=== PATIENT | male | born 1960 | race Caucasian/White ===

== ENCOUNTER → 2024-09-24 | Outpatient (CLI) | payer MEDICARE, MEDICAID, SELFPAY ==
--- NOTE | 2024-09-24 13:30 | XR_ITS ---
Examination: Ultrasound abdominal aorta TECHNIQUE: Multiple high resolution grayscale sonographic images abdominal aorta Exam date and time: September 24, 2024 1337 hours INDICATIONS: CT angiogram abdomen May 31, 2024 infrarenal abdominal aortic aneurysm AP dimension 4.1 cm medial lateral dimension 4.0 cm cephalad caudad dimension 8.6 cm FINDINGS: Transverse dimension proximal aorta 2.9 x 2.5 cm, mid aorta 4.1 x 3.5 cm distal aorta 3.7 x 3.3 cm right iliac artery 1.4 x 1.2 cm left iliac artery 1.4 x 1.3 cm, length of the abdominal aortic aneurysm 8.1 cm IMPRESSION: Aneurysmal dilatation abdominal aorta as above
== END | disposition home or self-care (01) ==
PROVIDERS: PCP Family Medicine; Referring Provider Surgery Vascular Surgery; Visit Provider Surgery Vascular Surgery
DX: I71.40 Abdominal aortic aneurysm, without rupture, unspecified (principal)
CPT/HCPCS: 76770

== ENCOUNTER → 2024-10-03 | Outpatient (CLI) | payer MEDICARE, MEDICAID, SELFPAY ==
[2024-10-03 16:15] LABS: Basophils # (Auto) 0.1 Thou/mm3 (0.0-0.2); Basophils % (Auto) 1 % (0-2.5); Eosinophils # (Auto) 0.2 Thou/mm3 (0.0-0.5); Eosinophils % (Auto) 2 % (0-10); Hematocrit 49.8 % (41.0-53.0); Hemoglobin 17.7 g/dL (13.5-16.0); Immature Granulocytes % (Auto) 0 % (0-0); Immature Granulocytes Auto 0.04 Thou/mm3 (0.00-0.00); Lymphocytes # (Auto) 3.9 Thou/mm3 (1.0-4.8); Lymphocytes % (Auto) 40 % (10-50); Mean Corpuscular HGB Conc 35.5 g/dl (31.0-37.0); Mean Corpuscular Hemoglobin 29.5 pg (25.0-35.0); Mean Corpuscular Volume 83 fL (80-100); Monocytes # (Auto) 0.8 Thou/mm3 (0.0-0.8); Monocytes % (Auto) 8 % (0-12); Neutrophils # (Auto) 4.9 Thou/mm3 (1.8-7.7); Neutrophils % (Auto) 49 % (37-80); Nucleated Red Blood Cell % 0 /100 WBC (0); Platelet Count 257 Thou/mm3 (140-440); RDW Standard Deviation 38.5 fL (35.1-43.9); White Blood Count 9.9 Thou/mm3 (3.8-10.6)
[2024-10-03 16:56] LABS: Glucose Estimated Average 258 mg/dL (80-131); Hemoglobin A1C 10.6 % Hgb (4.8-6.0)
[2024-10-03 17:29] LABS: Anion Gap 6 (7-16); BUN/Creatinine Ratio 26 Ratio (12-20); Blood Urea Nitrogen 26 mg/dL (9-23); Carbon Dioxide 25.9 mMol/L (20.0-31.0); Cardiac Risk Estimate 6.9 RATIO (4.0-6.7); Chloride 101 mMol/L (98-107); Cholesterol 228 mg/dL (132-200); Glucose 256 mg/dL (74-106); HDL Cholesterol 33 mg/dL (40-60); Magnesium 1.9 mg/dL (1.6-2.6); Osmolality,Calculated 280 (275-295); Potassium 4.2 mMol/L (3.4-5.1); Sodium 133 mMol/L (136-145); Thyroid Stimulating Hormone 1.95 uIU/mL (0.55-4.78); Triglycerides 769 mg/dL (30-150); eGFR > 60 See Note
== END | disposition home or self-care (01) ==
PROVIDERS: PCP Family Medicine; Referring Provider Internal Medicine Cardiovascular Disease; Visit Provider Internal Medicine Cardiovascular Disease
DX: I71.20 Thoracic aortic aneurysm, without rupture, unspecified (principal); I35.1 Nonrheumatic aortic (valve) insufficiency; E11.9 Type 2 diabetes mellitus without complications
CPT/HCPCS: 36415; 80048; 80061; 83036; 83735; 84439; 84443; 85025

== ENCOUNTER 2024-10-10 09:41 | Outpatient (CLI) | payer MEDICARE, MEDICAID, SELFPAY ==
[2024-10-10] VITALS (16 sets, daily range): BP systolic 112–161; BP diastolic 74–92; PULSE 72–79; RESP 12–20; TEMP 36.5–36.6; O2SAT 90–95; BMI 34.3
[2024-10-10 10:47] LABS: Basophils # (Auto) 0.1 Thou/mm3 (0.0-0.2); Basophils % (Auto) 1 % (0-2.5); Eosinophils # (Auto) 0.2 Thou/mm3 (0.0-0.5); Eosinophils % (Auto) 2 % (0-10); Hematocrit 48.7 % (41.0-53.0); Hemoglobin 17.1 g/dL (13.5-16.0); Immature Granulocytes % (Auto) 1 % (0-0); Immature Granulocytes Auto 0.05 Thou/mm3 (0.00-0.00); Lymphocytes # (Auto) 3.1 Thou/mm3 (1.0-4.8); Lymphocytes % (Auto) 33 % (10-50); Mean Corpuscular HGB Conc 35.1 g/dl (31.0-37.0); Mean Corpuscular Hemoglobin 29.4 pg (25.0-35.0); Mean Corpuscular Volume 84 fL (80-100); Monocytes # (Auto) 0.7 Thou/mm3 (0.0-0.8); Monocytes % (Auto) 8 % (0-12); Neutrophils # (Auto) 5.2 Thou/mm3 (1.8-7.7); Neutrophils % (Auto) 56 % (37-80); Nucleated Red Blood Cell % 0 /100 WBC (0); Platelet Count 262 Thou/mm3 (140-440); RDW Standard Deviation 38.7 fL (35.1-43.9); Red Blood Count 5.82 Miln/mm3 (4.50-5.90); White Blood Count 9.3 Thou/mm3 (3.8-10.6)
[2024-10-10 11:03] LABS: Anion Gap 8 (7-16); BUN/Creatinine Ratio 14 Ratio (12-20); Blood Urea Nitrogen 15 mg/dL (9-23); Calcium 9.9 mg/dL (8.3-10.6); Carbon Dioxide 25.8 mMol/L (20.0-31.0); Chloride 98 mMol/L (98-107); Creatinine (Component) 1.1 mg/dL (0.6-1.3); Glucose 346 mg/dL (74-106); Magnesium 1.8 mg/dL (1.6-2.6); Osmolality,Calculated 279 (275-295); Potassium 4.7 mMol/L (3.4-5.1); Sodium 132 mMol/L (136-145); eGFR > 60 See Note
[2024-10-10 11:04] LABS: Partial Thromboplastin Time 27.8 Seconds (22.0-36.0); Prothrombin Time 11.3 Seconds (9.0-12.2)
--- NOTE | 2024-10-10 13:00 | ECHO_ITS ---
Transesophageal Echo Report Ht (in): 72 Wt (lb): 255 Exam Location: [facility]ondest[facility] Tester Status: Outpatient Egg Buyer: Iman Payne Indications: Procedure Performed: BP: 138 / 92 HR: 76 Contrast: Agitated Saline Rhythm: Sinus Technical Quality: Fair Total Dose(mL): MEASUREMENTS 2D ECHO Aortic Root Diameter 4.9 cm Ascending Aorta Diameter 5.0 cm (Male / Female) Normal Values Medications The patient is medicated with 4mg of intravenous Versed and 75mcg of intravenous Fentanyl. Complications There are no complications prior to, during or in recovery from the transesophageal echocardiogram. FINDINGS Left Ventricle Normal left ventricular size, wall thickness, systolic function with no obvious regional wall motion abnormalities. The ejection fraction is visually estimated at 55-60%. Right Ventricle The right ventricle is normal in size and systolic function. Left Atrium The left atrium is normal. Right Atrium The right atrium is normal. Atrial Appendages The left atrial appendage appears normal with no evidence for thrombus. Atrial Septum An intravenous agitated saline injection indicated a PFO across the atrial septum release by agita tion saline injection. Aorta The aortic root and ascending aorta is severely dilated. 5.0cm Mitral Valve The mitral valve is normal. There is mild mitral valve regurgitation. Aortic Valve The aortic valve is trileaflet and normal. There is moderate to severe aortic valve regurgitation. Tricuspid Valve The tricuspid valve is normal. There is mild tricuspid valve regurgitation. Pulmonic Valve The pulmonic valve is normal.There is trace pulmonic valve regurgitation. Vessels The pulmonary artery appears normal. The inferior vena cava pulmonary and hepatic veins appear ponce l. Pericardium The pericardium is normal. There is no significant pericardial effusion. CONCLUSIONS Indication: Aortic aneurysm The aortic root and ascending aorta is severely dilated. Ascending aorta at 5.0cm. Moderate to severe AI. central AI. Vena contracte width of 0.98 cm. An intravenous agitated saline injection indicated a small PFO across the atrial septum release by agitation saline injection. No evidence of LA/RAYSHAWN thrombus Normal LV size and function. Estimated EF 55-60% Normal RV size and function. Mild, TR, MR. Trace PI. Jeyson Santiago (Electronically Signed) Final Date: 10 October 2024 19:18
[2024-10-10] MEDS: SODIUM CHLORIDE 0.9% 1000 ML 500 ML 100 ML IV (13:30)
[2024-10-10] MEDS: BENZOCAINE 20% (Hurricaine) SPRAY 1 DOSE TOP (13:31)
[2024-10-10] MEDS: MIDAZOLAM INJ 1 MG/ML VIAL 2 ML 4 MG IV (13:33)
[2024-10-10] MEDS: fentaNYL CIT INJ 50 mCg/ML AMP 2ML 75 MCG IV (13:34)
--- NOTE | 2024-10-10 16:01 | PC.NURSE ---
1450 patient is awake, alert, breathing unlabored, s/t MAIKEL under IV sedation, report received from Gladys LOYA, will get patient ready to go home. 1525 patient is awake, alert, breathing unlabored, able to tolerate sandwich and soda with no difficulty swallowing, meets discharge criteria, discharge instructions given, patient discharged home in wheelchair with all belongings.
== END 2024-10-10 15:25 | disposition home or self-care (01) ==
PROVIDERS: PCP Family Medicine; Referring Provider Internal Medicine Cardiovascular Disease; Visit Provider Internal Medicine Cardiovascular Disease
PROC: (CPT 93312; principal; 2024-10-10 13:00)
DX: I08.1 Rheumatic disorders of both mitral and tricuspid valves (principal); Z01.812 Encounter for preprocedural laboratory examination
CPT/HCPCS: 36415; 80048; 83735; 85025; 85610; 85730; 93312; 99152; 99153; J2250; J3010; J7030; A9270

== ENCOUNTER 2024-11-29 10:12 | Day surgery (SDC) | payer MEDICARE, MEDICAID, SELFPAY ==
--- NOTE | 2024-11-28 07:00 | EKG_ITS ---
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
[2024-11-28 10:33] VITALS: BMI 33.9
[2024-11-28 13:19] LABS: Basophils # (Auto) 0.1 Thou/mm3 (0.0-0.2); Basophils % (Auto) 1 % (0-2.5); Eosinophils # (Auto) 0.2 Thou/mm3 (0.0-0.5); Eosinophils % (Auto) 2 % (0-10); Hematocrit 46.8 % (41.0-53.0); Hemoglobin 16.5 g/dL (13.5-16.0); Immature Granulocytes % (Auto) 0 % (0-0); Immature Granulocytes Auto 0.04 Thou/mm3 (0.00-0.00); Lymphocytes # (Auto) 3.5 Thou/mm3 (1.0-4.8); Lymphocytes % (Auto) 34 % (10-50); Mean Corpuscular HGB Conc 35.3 g/dl (31.0-37.0); Mean Corpuscular Hemoglobin 29.5 pg (25.0-35.0); Mean Corpuscular Volume 84 fL (80-100); Monocytes # (Auto) 0.9 Thou/mm3 (0.0-0.8); Monocytes % (Auto) 9 % (0-12); Neutrophils # (Auto) 5.6 Thou/mm3 (1.8-7.7); Neutrophils % (Auto) 54 % (37-80); Nucleated Red Blood Cell % 0 /100 WBC (0); Platelet Count 281 Thou/mm3 (140-440); RDW Standard Deviation 39.3 fL (35.1-43.9); Red Blood Count 5.59 Miln/mm3 (4.50-5.90); White Blood Count 10.3 Thou/mm3 (3.8-10.6)
[2024-11-28 13:27] LABS: INR 1.1 (0.9-1.3); Partial Thromboplastin Time 29.4 Seconds (22.0-36.0); Prothrombin Time 11.7 Seconds (9.0-12.2)
[2024-11-28 13:28] LABS: Anion Gap 9 (7-16); BUN/Creatinine Ratio 18 Ratio (12-20); Blood Urea Nitrogen 18 mg/dL (9-23); Calcium 9.6 mg/dL (8.3-10.6); Carbon Dioxide 26.2 mMol/L (20.0-31.0); Chloride 103 mMol/L (98-107); Estimated Creatinine Clearance 99.6 mL/min (>60); Glucose 166 mg/dL (74-106); Osmolality,Calculated 281 (275-295); Potassium 4.2 mMol/L (3.4-5.1); Sodium 138 mMol/L (136-145); eGFR > 60 See Note
[2024-11-29] VITALS (11 sets, daily range): BP systolic 106–144; BP diastolic 66–91; PULSE 62–87; RESP 8–19; TEMP 36.2–36.3; O2SAT 92–98
--- NOTE | 2024-11-29 14:00 | ESOP_ITS ---
Cardiac Cath Procedure Procedure Name Date of procedure: 11/29/2024 BANQUET CHEF: Jeyson Santiago MD PROCEDURE PERFORMED: 1. Left and right heart cardiac catheterization including right, left coronary angiograms and left ventriculogram 2. Ultrasound-guided access of the right radial artery and right femoral vein. 3. Conscious sedation for 30 minutes. Procedure Narrative HISTORY AND INDICATIONS: A 64 year old male patient with past medical history of thoracic and abdominal aortic aneurysm, DM2, HTN, HLD, COPD, covid PNA, pneumothorax 2021, GERD, history of smoking (quit 2009 - 2.5 packs/day), morbid obesity and drinking (socially) was brought in for an elective left and right heart cardiac catheterization as the patient had ascending aortic abdominal aneurysm along with moderate to severe AI in preparation for possible aortic valve surgery along with aortic root replacement possibly. Patient was explained the risk benefits and alternatives of performing a left heart cardiac catheterization including the risk of bleeding, heart attack, stroke and in detail and the agreeable for the procedure. Consent signed, placed in the chart and H&P updated. DESCRIPTION OF PROCEDURE: The patient was brought to the cardiac catheterization lab and all asceptic precautions were followed. Patient was given 1 Mg of Versed and 50 mcg of fentanyl for moderate conscious sedation. 2 mL of lidocaine was given in the right wrist. The right radial artery was accessed via the ultrasound guidance as well as micropuncture technique. A 6 [place] glide sheath was introduced. A 10 ml of lidocaine was then injected in the right femoral area and right femoral vein vein was accessed with ultrasound guidance and micropuncture technique. A 7 maldivian femoral sheath was used. A 7 [place] catheter was used with a [place] wire to direct into the right atrium with inflated balloon. Serial measurements of right atrium, right ventricle, pulmonary artery and pulmonary capillary wedge were taken severely with normal respiration as well as at end expiration as noted below. We then used a 6 [place] TIG 4 catheter to perform the left and right coronary angiogram as well as a left ventriculogram which showed the following findings. [facility] findings: 1. Left ventricular ejection fraction normal at 55 to 60% without any regional wall motion abnormalities. LVEDP was mildly elevated at 90 mmHg. There was no significant transvalvular aortic gradient. 2. Right dominant circulation left main artery is a large-caliber vessel without any significant stenosis. 3. LAD is a large sized artery with moderate 50% stenosis in the mid LAD-2 tandem lesions, a medium size diagonal 1 and small diagonal 2 with mild disease. 4. LCx is a medium to large size artery with moderate 50% stenosis in the mid LCx with a small OM1 and a medium sized OM 2 or LPL 5. RCA is a large artery with severe 90% stenosis in the mid RCA, otherwise diffuse disease and medium RPDA and a small RPL with mild disease RHC findings: Mean right atrial pressure was 5 mmHg. Right atrial pressure was 17/5 mmHg. Pulmonary artery pressure was 29/2 mmHg with a mean of 15 mmHg Mean pulmonary capillary wedge pressure was 14 mmHg. TPG was 1 mmHg Pulmonary artery PA saturation was 62.7 %.? Arterial saturation was 91.6 % on room air. Cardiac output was 4.5 L/min and cardiac index was normal at 1.9 L/min/m? A radial band was used to achieve the hemostasis of the right radial artery access and manual hemostasis for the right femoral vein. Patient will be monitored in the cardiac clinical program coordinator for the next 2 to 3 hours and will be sent to the telemetry floor. Patient recommended to follow-up with me in the office within 7 days after discharge. Complications: None Specimens: None Blood loss: Estimated 5 -10 ml Summary/findings: 1. Ascending aortic aneurysm at 5.1 cm along with moderate to severe AI: Elective LHC showed patient had severe 90% stenosis of the mid RCA and moderate CAD of the LAD and LCx with around 50 to 60% stenosis in the mid segments. Rest of the arteries showed only mild disease. 2. LVEF was normal at 55-60 % with mildly elevated LVEDP at 19 mmHg and no significant transvalvular aortic gradient 3. Right heart cardiac catheterization showed normal right heart pressures with normal PCWP at 40 mmHg and normal mean PA 50 mmHg and mean RA was only 5 mmHg. 4. Low normal cardiac output and cardiac index at 4.5 L/min and 1.9 L/min/m?. Recommendations: 1. Given patient's severe single coronary artery disease involving the mid RCA and the ascending aortic aneurysm at 5.1 cm along with moderate to severe AI decision was made to send the patient for CABG along with aortic valve replacement and root repair. Discussed with Dr. Loredo cardiothoracic surgeon at [facility] and he will see the patient in his office next week and will plan for the surgery after all appropriate preoperative workup. 2. Recommend aggressive risk factor modification along with aggressive medical treatment and to keep the blood pressure below 120/80 mmHg at all the times. 3. Recommended no lifting more than 5 pounds for next 7-10 days and follow up in my office in 7 days. Jeyson Santiago MD Interventional Cardiology.
[2024-11-29] MEDS: SODIUM CHLORIDE 0.9% 500 ML 500 ML 200 ML IV (14:04)
[2024-11-29 15:46] LABS: O2 Saturation (Cath Lab) 93 % (91-98); Puncture Site Aortic
[2024-11-29 15:49] LABS: O2 Saturation (Cath Lab) 62 % (91-98); Puncture Site Pulmonary Artery
--- NOTE | 2024-11-29 16:40 | PC.NURSE ---
Cardiac Cath disc sent with patient on discharge
== END 2024-11-29 16:38 | disposition home or self-care (01) ==
PROVIDERS: PCP Family Medicine; Referring Provider Internal Medicine Cardiovascular Disease; Visit Provider Internal Medicine Cardiovascular Disease
PROC: (CPT 93460; principal; 2024-11-29 12:00)
DX: I25.10 Atherosclerotic heart disease of native coronary artery without angina pectoris (principal); I35.1 Nonrheumatic aortic (valve) insufficiency; I71.43 Infrarenal abdominal aortic aneurysm, without rupture; I10 Essential (primary) hypertension; J44.9 Chronic obstructive pulmonary disease, unspecified; E11.9 Type 2 diabetes mellitus without complications; E78.5 Hyperlipidemia, unspecified; Z87.891 Personal history of nicotine dependence; F12.90 Cannabis use, unspecified, uncomplicated; Z86.79 Personal history of other diseases of the circulatory system; K21.9 Gastro-esophageal reflux disease without esophagitis; J44.0 Chronic obstructive pulmonary disease with (acute) lower respiratory infection; Z01.810 Encounter for preprocedural cardiovascular examination
CPT/HCPCS: 93460; 36415; 75625; 80048; 82810; 85025; 85610; 85730; 93005; 99152; A4649; C1887; C1894; J0171; J0461; J1265; J1643; J2250; J2310; J2371; J2405; J3010; J3490; J7040; Q9967; J2305

== ENCOUNTER 2025-01-09 13:03 | Emergency (ER) | payer MEDICARE, MEDICAID, SELFPAY ==
[2025-01-09] VITALS (7 sets, daily range): BP systolic 137–161; BP diastolic 64–91; PULSE 65–108; RESP 14–20; TEMP 36.3–37.1; O2SAT 92–95; BMI 32.0
--- NOTE | 2025-01-09 13:27 | XR_ITS ---
Examination: AP chest single view Technique one AP portable upright chest single view Exam date and time: January 09, 2025 1249 hours Comparison September 13, 2022 INDICATIONS: Chest pain today. FINDINGS: Bibasilar opacity consistent with pneumonia Normal heart size Moderate hyperexpansion IMPRESSION: Bibasilar pneumonia
--- NOTE | 2025-01-09 13:27 | EKG_ITS ---
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
--- NOTE | 2025-01-09 13:28 | XR_ITS ---
Examination: CTA chest, with intravenous contrast. CTA abdomen, with intravenous contrast. CTA pelvis, with intravenous contrast. 2-D sagittal and coronal reconstructions. 3-D reconstructions. Date and time of exam: January 09, 2025 1610 hours INDICATIONS: Right-sided chest pain shortness of breath today CTDI vol (mgy) 27.6 DLP (MGycm) 1471 Technique: Multiple CTA images, 2.0 mm slice thickness, obtained chest, abdomen, pelvis, with the high-resolution 64 slice scanner. 100 cc Isovue-370 is administered intravenously. Sagittal and coronal 2-D reconstructions are obtained. 3-D reconstructions, angiographic images are obtained. 3-D postprocessing, including vascular maximum intensity projections. Low dose protocols were performed. One or more of the following dose reduction techniques were used; automated exposure control, adjustment of the mA and/or KV according to patient size, use of iterative reconstruction technique. 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
--- NOTE | 2025-01-09 13:29 | PD.EDRME ---
Rapid Medical Screening Exam RME Arrival date/time: 01/09/25 13:03 Chief Complaint: Abdominal Pain Time Seen by Provider: 01/09/25 13:17 Vital signs: Vital Signs Temperature 97.8 F 01/09/25 13:19 Pulse Rate 108 H 01/09/25 13:19 Respiratory Rate 20 01/09/25 13:19 Blood Pressure 161/83 H 01/09/25 13:19 Pulse Oximetry (%) 95 01/09/25 13:19 Oxygen Delivery Method Room Air 01/09/25 13:19 RME Narrative: 64-year-old male patient with significant history of aortic aneurysm, hypertension, diabetes mellitus, came in for evaluation regarding worsening substernal chest pain since yesterday. Severity 10 out of [address] Davalos, regarding aortic aneurysm, and was advised to follow-up in 6 months.
[2025-01-09] MEDS: ONDANSETRON INJ 2 MG/ML INJ 2 ML 4 MG IV ×2 (13:47→15:15)
[2025-01-09] MEDS: MORPHINE SULF INJ 10 MG/ML VIAL 4 MG IVP (13:47)
--- NOTE | 2025-01-09 14:02 | PC.NURSE ---
PT CAME IN ROOM FROM LOBBY, PT HEAR FOR ABD PAIN 10/10 EPIGASTIC PAIN RADIATES TO BACK, PAIN STARTED YESTERDAY MORNING. PT STATES HE 2 Pneumothorax to left long, pt was suppose heart surgery but canceled do to pneumothorax needs valve replacement.
[2025-01-09 14:03] LABS: Basophils # (Auto) 0.1 Thou/mm3 (0.0-0.2); Basophils % (Auto) 0 % (0-2.5); Eosinophils # (Auto) 0.1 Thou/mm3 (0.0-0.5); Eosinophils % (Auto) 0 % (0-10); Hematocrit 50.5 % (41.0-53.0); Hemoglobin 18.2 g/dL (13.5-16.0); Immature Granulocytes % (Auto) 1 % (0-0); Immature Granulocytes Auto 0.12 Thou/mm3 (0.00-0.00); Lymphocytes # (Auto) 3.1 Thou/mm3 (1.0-4.8); Lymphocytes % (Auto) 16 % (10-50); Mean Corpuscular Hemoglobin 29.9 pg (25.0-35.0); Mean Corpuscular Volume 83 fL (80-100); Monocytes # (Auto) 1.2 Thou/mm3 (0.0-0.8); Monocytes % (Auto) 6 % (0-12); Neutrophils # (Auto) 14.6 Thou/mm3 (1.8-7.7); Neutrophils % (Auto) 76 % (37-80); Nucleated Red Blood Cell % 0 /100 WBC (0); Platelet Count 378 Thou/mm3 (140-440); RDW Standard Deviation 39.9 fL (35.1-43.9); Red Blood Count 6.08 Miln/mm3 (4.50-5.90); White Blood Count 19.1 Thou/mm3 (3.8-10.6)
[2025-01-09 14:16] LABS: INR 1.1 (0.9-1.3); Partial Thromboplastin Time 30.2 Seconds (22.0-36.0); Prothrombin Time 11.8 Seconds (9.0-12.2)
[2025-01-09 14:22] LABS: Alanine Aminotransferase 35 U/L (10-49); Albumin, Serum 5.4 gm/dL (3.4-4.8); Albumin/Globulin Ratio 1.7 (1.2-2.2); Alkaline Phosphatase 93 U/L (46-116); Anion Gap 14 (7-16); Aspartate Amino Transferase 21 U/L (0-34); BUN/Creatinine Ratio 18 Ratio (12-20); Bilirubin,Total 0.6 mg/dL (0.3-1.2); Blood Urea Nitrogen 16 mg/dL (9-23); Calcium 10.7 mg/dL (8.3-10.6); Calcium (Corrected) 10.7 mg/dL (8.5-10.1); Carbon Dioxide 19.5 mMol/L (20.0-31.0); Chloride 105 mMol/L (98-107); Creatinine (Component) 0.9 mg/dL (0.6-1.3); Estimated Creatinine Clearance 110.8 mL/min (>60); Globulin 3.1 gm/dL (2.3-3.5); Glucose 171 mg/dL (74-106); Lipase 52 U/L (12-53); Osmolality,Calculated 280 (275-295); Potassium 4.4 mMol/L (3.4-5.1); Sodium 138 mMol/L (136-145); Total Protein 8.5 gm/dL (5.7-8.2); Troponin I < 0.020 ng/mL (0.0-0.045); eGFR > 60 See Note
[2025-01-09 14:24] LABS: B-Type Natriuretic Peptide 23 pg/mL (0-100)
--- NOTE | 2025-01-09 15:03 | PD.EDABDPN ---
ED Abdominal Pain RME/HPI General Chief Complaint: Abdominal Pain Stated complaint: SHARP PAIN MID-UPPER ABD X 1 DAY Time seen by provider: 01/09/25 13:17 Arrival date/time: 01/09/25 13:03 Limitations: no limitations RME / HPI RME / HPI narrative: 64-year-old male patient with significant history of aortic aneurysm, hypertension, diabetes mellitus, came in for evaluation regarding worsening substernal chest pain since yesterday. Severity 10 out of [address] Davalos, regarding aortic aneurysm, and was advised to follow-up in [address] BURTON MAIN ED EVALUATION: 64 year old male with history of abdominal aortic aneurysm, hypertension, diabetes, hyperlipidemia, COPD presents to the ED for evaluation of abdominal pain beginning yesterday when he woke up. Described as aching in sensation that is located most to the mid epigastric region, rating as severe. States he has had problems with reflux and GERD in the past. Additionally reports in the past the pain comes on suddenly and resolved on its own. Denies chest pain, sob, palpitations, n/v/d, or urinary symptoms. Patient additionally mentioned he recently underwent preoperative labs and imaging. States they were concerned with his cxr findings and has a chest CT pending. 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 Past surgical hx: facial trauma and had reconstructive surgery years ago. Soc hx: smokes, no drinking Related Data Home Medications ?Medication ?Instructions ?Recorded ?Confirmed amlodipine 10 mg tablet 10 mg PO QDAY 10/10/24 01/09/25 aspirin 81 mg capsule 81 mg PO QDAY 10/10/24 01/09/25 fluticasone furoate 200 1 inh inhalation QDAY 10/10/24 01/09/25 mcg-vilanterol 25 mcg/dose inhalation powder lisinopril 20 1 tab PO QDAY 10/10/24 01/09/25 mg-hydrochlorothiazide 12.5 mg tablet metformin 500 mg tablet,extended 500 mg PO BID 10/10/24 01/09/25 release 24 hr Held on 11/29/24. Instructions: Resume on 12/01/24. albuterol sulfate 90 mcg/actuation 1 puff inhalation Q1H PRN 11/29/24 01/09/25 aerosol inhaler shortness of breath or wheezing empagliflozin 25 mg tablet 25 mg PO QDAY 11/29/24 01/09/25 (Jardiance) aspirin 81 mg tablet,delayed mg 01/09/25 release clopidogrel 75 mg tablet (Plavix) 75 mg PO QDAY 01/09/25 01/09/25 Allergies Allergy/AdvReac Type Severity Reaction Status Date / Time codeine Allergy Intermediate Hives Verified 01/09/25 14:59 Bee Stings Allergy Intermediate Rash Uncoded 01/09/25 14:59 Review of Systems Review of Systems Narrative Review of Systems: GEN: No fever, no chills, no weight loss EYES: No discharge, no visual changes, no pain HEENT: No ear pain, no congestion, no sore throat PULM: No shortness of breath, no cough, no congestion CV: No chest pain, no dyspnea on exertion, no palpitations GI: No nausea, no vomiting, no diarrhea, + pain, no constipation : No frequency, no urgency, no dysuria MUSC/SKEL: No joint pain, no back pain SKIN: No rash PSYCH: No hallucinations, no depression HEME/LYMPH: No easy bleeding or bruising tendencies NEURO: No weakness, no headache Past Medical History Past Medical History NEUROLOGIC: Positive Neurological Disorders (forgetful) CARDIAC: Positive Cardiac Disorders (leaky hear valve), Angina, Hypercholesterolemia and Hypertension RESPIRATORY: Positive Chronic Obstructive Pulmonary Disease (COPD) and Asthma (copd) GASTROINTESTINAL: Positive Gastrointestinal Disorders, Gastroesophageal Reflux Disease and Obesity ENT: Positive Cataracts ENDOCRINE: Positive Endocrine Disorders and Diabetes Mellitus Type 2 PSYCHO/SOCIAL: Positive Recreational Drug Use (MARIJUANA), Depression and Anxiety OTHER HISTORY: Positive Chicken Pox, Measles and Mumps Family History FAMILY HISTORY: Negative Family Respiratory Disorders or Family Cardiac Disorders Surgical History SURGICAL: Positive Eye Surgery (FACIAL RECONSTRUCTION) Social History SMOKING STATUS: Former smoker ED Exam General Limitations: Present no limitations General appearance: Present alert, in no apparent distress and obese Head Head exam: Present atraumatic, normocephalic and normal inspection Eye Eye exam: Present normal appearance, PERRL and EOMI ENT ENT exam: Present normal exam, normal oropharynx and mucous membranes moist Neck Neck exam: Present normal inspection, full ROM and trachea midline Chest Chest inspection: Present normal inspection and symmetric chest wall rise Respiratory Respiratory exam: Present normal lung sounds bilaterally Cardiovascular Cardiovascular exam: Present regular rate, normal rhythm and normal heart sounds Abdominal Exam Abdominal exam: Present soft, tenderness (1+ epigastric tenderness ) and normal bowel sounds Extremities Exam Extremities exam: Present normal inspection and full ROM Back Exam Back exam: Present normal inspection and full ROM Neurological Exam Neurological exam: Present alert, oriented X3 and CN II-XII intact Psychiatric Psychiatric exam: Present normal affect and normal mood Skin Skin exam: Present warm, dry, intact and normal color Course Quality Measures none Orders Category Date Time Status Information Technology Professor STAT Care 01/09/25 14:54 Completed Information Technology Professor X1 Care 01/09/25 14:07 Completed Continuous Pulse Oximetry STAT Care 01/09/25 14:54 Completed EKG (ED ONLY) *Do not use* NOW Care 01/09/25 13:27 Completed Insert IV STAT Care 01/09/25 14:54 Completed NPO STAT Care 01/09/25 14:[address] angio chest abdomen pelvis Stat Exams 01/09/25 13:28 Completed EKG (ED Only) Stat Exams 01/09/25 13:27 Draft XR chest 1V Stat Exams 01/09/25 13:27 Completed B-Type Natriuretic Peptide Stat Lab 01/09/25 13:45 Completed Blood Culture (Lab) Stat Lab 01/09/25 17:19 Received CBC Stat Lab 01/09/25 13:45 Completed Comprehensive Metabolic Panel Stat Lab 01/09/25 13:45 Completed Drug Screen,Urine Stat Lab 01/09/25 13:27 Ordered Lactic Acid [Lactate (Lactic Acid)] Stat Lab 01/09/25 17:15 Completed Lipase Stat Lab 01/09/25 13:45 Completed Magnesium Stat Lab 01/09/25 13:45 Completed Partial Thromboplastin Time Stat Lab 01/09/25 13:45 Completed Procalcitonin Stat Lab 01/09/25 17:15 Completed Prothrombin Time with INR Stat Lab 01/09/25 13:45 Completed Troponin I Stat Lab 01/09/25 13:45 Completed Urinalysis, C/S if Indicated Stat Lab 01/09/25 13:27 Ordered Azithromycin Inj [Zithromax Inj] 500 mg Med 01/10/25 09:00 Pending Sodium Chloride 0.9% 250 ml [Ns] 250 ml IV QDAY Azithromycin Inj [Zithromax Inj] 500 mg Med 01/09/25 17:15 Discontinued Sodium Chloride 0.9% 250 ml [Ns] 250 ml IV X1 HYDROmorphone INJ [Dilaudid Inj] Med 01/09/25 14:52 Discontinued 1 mg IVP X1 ONE Morphine Inj Med 01/09/25 13:28 Discontinued 4 mg IVP X1 ONE Ondansetron Inj [Zofran Inj] Med 01/09/25 14:53 Active 4 mg IV Q1H PRN Ondansetron Inj [Zofran Inj] Med 01/09/25 13:28 Discontinued 4 mg IV X1 ONE Ondansetron Inj [Zofran Inj] Med 01/09/25 14:52 Discontinued 4 mg IV X1 ONE Pantoprazole Inj [Protonix Inj] Med 01/09/25 14:53 Discontinued 40 mg IVP X1 ONE Sodium Chloride 0.9% 1000 ml [Ns] 1,000 ml Med 01/09/25 14:53 Discontinued IV 999 mls/hr cefTRIAXone [Rocephin] 2 gm Med 01/09/25 16:58 Discontinued SODIUM CHLORIDE 0.9% (Popper) [Ns 0.9% (P)] 50 ml IV X1 Vital Signs Vital signs: Vital Signs Temperature 97.8 F 01/09/25 13:19 Pulse Rate 108 H 01/09/25 13:19 Respiratory Rate 20 01/09/25 13:19 Blood Pressure 161/83 H 01/09/25 13:19 Pulse Oximetry (%) 95 01/09/25 13:19 Oxygen Delivery Method Room Air 01/09/25 13:19 Pulse ox is 95% on room air which is adequate. Abdominal Pain MDM MDM Narrative MDM Narrative:: Marti Mujica am scribing for and in the presence of Dr. Burton. Patient data External records reviewed:: [facility] previous records (I reviewed H&P on 11/29/2024 ) Clinical information provided by:: patient Social determinants that could affect healthcare access:: none Patient has the following chronic illnesses:: abdominal aortic aneurysm, hypertension, diabetes, hyperlipidemia, COPD How is presenting disease/condition affected by chronic disease/condition?: exacerbated by Evaluation data The following diagnostics were reviewed and interpreted by me:: lab results, radiology exam(s) and EKG tracing(s) Lab and/or radiology exams considered but not ordered:: None Interpretation Summary: Ordering Physician: Yakov Rodríguez Date of Service: 01/09/25 Procedure(s): XR chest 1V Accession Number(s): [id number] cc: Yakov Rodríguez; Binh Patel MD~ Examination: AP chest single view Technique one AP portable upright chest single view Exam date and time: January 09, 2025 1249 hours Comparison September 13, 2022 INDICATIONS: Chest pain today. FINDINGS: Bibasilar opacity consistent with pneumonia Normal heart size Moderate hyperexpansion IMPRESSION: Bibasilar pneumonia Dictated By: Binh Patel MD Signed By: <Electronically signed by Binh Patel MD in OV> 01/09/25 1418 Ordering Physician: Yakov Rodríguez Date of Service: 01/09/25 Procedure(s): CT angio chest abdomen pelvis Accession Number(s): [id number] cc: Yakov Rodríguez; Nancy Hicks; Binh Patel MD~ Examination: CTA chest, with intravenous contrast. CTA abdomen, with intravenous contrast. CTA pelvis, with intravenous contrast. 2-D sagittal and coronal reconstructions. 3-D reconstructions. Date and time of exam: January 09, 2025 1610 hours INDICATIONS: Right-sided chest pain shortness of breath today CTDI vol (mgy) 27.6 DLP (MGycm) 1471 Technique: Multiple CTA images, 2.0 mm slice thickness, obtained chest, abdomen, pelvis, with the high-resolution 64 slice scanner. 100 cc Isovue-[id number] is administered intravenously. Sagittal and coronal 2-D reconstructions are obtained. 3-D reconstructions, angiographic images are obtained. 3-D postprocessing, including vascular maximum intensity projections. Low dose protocols were performed. One or more of the following dose reduction techniques were used; automated exposure control, adjustment of the mA and/or KV according to patient size, use of iterative reconstruction technique. 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 Dictated By: Binh Patel MD Signed By: <Electronically signed by Binh Patel MD in OV> 01/09/25 1719 Medications / Prescriptions Medications or Prescriptions considered but not ordered:: None Medication administrations:: Medication Administration History Azithromycin 500 mg/ Sodium (Chloride) 250 mls @ 250 mls/hr IV QDAY CASA Stop: 01/17/25 08:59 Ondansetron HCl (Ondansetron Inj 2 Mg/Ml Inj 2 Ml) 4 mg IV Q1H PRN PRN Reason: PERSISTENT NAUSEA OR VOMITING Discontinued Medications Hydromorphone HCl (Hydromorphone Inj 2 Mg/Ml Vial) 1 mg IVP X1 ONE Stop: 01/09/25 14:53 Last Admin: 01/09/25 15:14 Dose: 1 mg Documented By: BD Sodium Chloride (Ns) 1,000 mls @ 999 mls/hr IV .Q1H1M ONE Stop: 01/09/25 15:53 Last Infusion: 01/09/25 17:30 Dose: Infused Documented By: Admin: 01/09/25 15:15 Dose: 999 mls/hr Documented By: BD Ceftriaxone Sodium 2 gm/ (Sodium Chloride) 50 mls @ 100 mls/hr IV X1 ONE Stop: 01/09/25 17:27 Last Infusion: 01/09/25 18:09 Dose: Infused Documented By: Admin: 01/09/25 17:38 Dose: 100 mls/hr Documented By: BD Azithromycin 500 mg/ Sodium (Chloride) 250 mls @ 250 mls/hr IV X1 ONE Stop: 01/09/25 18:14 Morphine Sulfate (Morphine Sulf Inj 10 Mg/Ml Vial) 4 mg IVP X1 ONE Stop: 01/09/25 13:29 Last Admin: 01/09/25 13:47 Dose: 4 mg Documented By: BD Ondansetron HCl (Ondansetron Inj 2 Mg/Ml Inj 2 Ml) 4 mg IV X1 ONE; Protocol Stop: 01/09/25 13:29 Last Admin: 01/09/25 13:47 Dose: 4 mg Documented By: BD Ondansetron HCl (Ondansetron Inj 2 Mg/Ml Inj 2 Ml) 4 mg IV X1 ONE; Protocol Stop: 01/09/25 14:53 Last Admin: 01/09/25 15:15 Dose: 4 mg Documented By: BD Pantoprazole Sodium (Pantoprazole Inj 40 Mg Vial) 40 mg IVP X1 ONE Stop: 01/09/25 14:54 Last Admin: 01/09/25 15:14 Dose: 40 mg Documented By: BD See above Consultations Consultation(s) initiated? (list below): No Diagnosis Differential diagnosis abdominal pain: abdominal pain, gastroenteritis, pancreatitis and other (gastritis ) Admission Indicated Admission indicated?: not indicated Admission Request Was there a request for admission?: No Disposition Plan Disposition Plan: Discharge Discharge Attestation Discharge Attestation: The patient and all family members were given an opportunity to ask questions and understood the discharge instructions. Discharge instructions specifically effects, indications for sooner follow up or return to the emergency department, and the expected course of current diagnosis. Patient condition: Stable Discharge Plan Plan Patient Disposition: HOME (Self Care) Prescriptions/Referrals Prescriptions/Med Rec: No Action lisinopril-hydrochlorothiazide 20-12.5 mg Tablet 1 tab PO QDAY amlodipine 10 mg Tablet 10 mg PO QDAY metformin 500 mg Tablet Extended Release 24 Hr 500 mg PO BID fluticasone furoate-vilanterol 200-25 mcg/dose Blister With Device 1 inh INHALATION QDAY aspirin 81 mg Capsule 81 mg PO QDAY aspirin 81 mg tablet,delayed release (DR/EC) clopidogrel [Plavix] 75 mg tablet 75 mg PO QDAY albuterol sulfate 90 mcg/actuation HFA aerosol inhaler 1 puff INHALATION Q1H PRN (Reason: shortness of breath or wheezing) Jardiance 25 mg tablet 25 mg PO QDAY Referrals: Nancy Hicks FNP [Primary Care Provider] - In 1 week Patient/Caregiver Discharge Instructions Print Language: Belarusian Stand Alone Forms: Jie Award Info., Patient Portal Info Letter
[2025-01-09] MEDS: HYDROmorphone INJ 2 MG/ML VIAL 1 MG IVP (15:14)
[2025-01-09] MEDS: PANTOPRAZOLE INJ 40 MG VIAL IVP (15:14)
[2025-01-09] MEDS: SODIUM CHLORIDE 0.9% 1000 ML 1,000 ML 999 ML IV (15:15)
[2025-01-09 17:31] LABS: Lactate (Lactic Acid) 1.2 mMol/L (0.4-2.0)
[2025-01-09] MEDS: cefTRIAXone 2 GM in SODIUM CHLORIDE 0.9% (Popper) 50 ML IV (17:38)
--- NOTE | 2025-01-09 17:59 | PC.NURSE ---
pt wanted ice chips and pain meds notified he said ice chips ok
[2025-01-09 18:04] LABS: Procalcitonin 0.08 ng/ml (0.0-0.49)
--- NOTE | 2025-01-09 18:14 | PC.NURSE ---
dr. obrien said to stop abx he will give him oral abx
[2025-01-09 18:17] LABS: Collection Type, Urine Clean Catch; Squamous Epithelial Cell,Urine 0 /hpf (0-5); WBC,Urine 0 /hpf (0-5)
--- NOTE | 2025-01-09 18:56 | PD.EDADDENDU ---
Emergency Room Addendum Addendum Narrative: [address] Koenig. Past medical, surgical, social and family history reviewed. Vitals and home medications reviewed. Results and treatment plan discussed. I will assume the care of the patient at this time and will follow the patient, pending final disposition. Please refer to the emergency department record for history and examination from initial visit. The following addendum documentation note is intended to reflect any pending information, findings, or radiology results not included in the patient?s initial chart. 1929 The physical exam, as performed by me, reveals significant epigastric tenderness with voluntary guarding, right-sided epigastric tenderness, and a positive Rodriguez?s sign. 2115 The patient was re-evaluated and reported complete resolution of pain with no remaining tenderness on examination. Diagnostic results were reviewed and showed no significant findings warranting inpatient admission. The findings and treatment plan were discussed, and outpatient management was deemed appropriate. The patient expressed understanding of the plan of care and was advised to return to the ED if any worsening symptoms or new concerns arise. Clinical Impression: #COPD #Pulmonary [place] #Epigastric pain RADIOLOGY DATA Examination: Abdomen sonogram, Limited Date and time of exam: January 09, 2025, 1924 hours INDICATIONS: Epigastric pain, right upper abdominal pain beginning 2 days ago Technique: Real-time bains scale transabdominal sonographic images of the upper abdomen obtained. Findings: Cholelithiasis, gallbladder wall 0.4 cm no edema Common bile duct 0.4 cm, no stones Pancreatic head measures 3.5 cm, pancreatic head measures 3.[address] chest study today Liver 19.1 cm infiltration lobular borders Normal hepatopedal portal venous flow. Patent IVC IMPRESSION: Cholelithiasis, negative for cholecystitis Mildly prominent pancreatic head, recommend ultrasound pancreas 3-6 month follow-up Hepatomegaly, suspected primary hepatocellular disease Dictated By: Binh Patel MD, MD Attestation Attestation Scribe Attestation: Diego Mujica, am scribing for and in the presence of Dr. Leal. Provider Notation: Although this document has been carefully reviewed, there may still be some phonetic and other typographical errors. These errors are purely grammatical due to imperfections in the software program and should not be construed in any way to compromise the substance of the patient's medical care during this visit.
[2025-01-09] MEDS: ACETAMINOPHEN IVPB 1,000 MG/100 ML VIAL 250 MG IV (19:07)
[2025-01-09 19:10] LABS: Bilirubin,Urine Negative (Negative); Blood,Urine 1+ (Negative); Clarity,Urine Clear (Clear/Hazy); Color,Urine Yellow (Lt Yel-Yel); Culture Indicated,Urine Not Indicated; Glucose, Urine 4+ (Negative); Ketones,Urine 1+ (Negative); Leukocyte Esterase,Urine Negative (Negative); Nitrite,Urine Negative (Negative); Protein,Urine Trace (Neg - Trace); RBC,Urine 2 /hpf (0-3); Specific Gravity,Urine 1.045 (1.001-1.035); Urobilinogen,Urine Negative mg/dL (0.0-1.0)
--- NOTE | 2025-01-09 19:12 | XR_ITS ---
Examination: Abdomen sonogram, Limited Date and time of exam: January 09, 2025, 1924 hours INDICATIONS: Epigastric pain, right upper abdominal pain beginning 2 days ago Technique: Real-time bains scale transabdominal sonographic images of the upper abdomen obtained. Findings: Cholelithiasis, gallbladder wall 0.4 cm no edema Common bile duct 0.4 cm, no stones Pancreatic head measures 3.5 cm, pancreatic head measures 3.[address] chest study today Liver 19.1 cm infiltration lobular borders Normal hepatopedal portal venous flow. Patent IVC IMPRESSION: Cholelithiasis, negative for cholecystitis Mildly prominent pancreatic head, recommend ultrasound pancreas 3-6 month follow-up Hepatomegaly, suspected primary hepatocellular disease
[2025-01-09] MEDS: PIPER/TAZO INJ 4.5 GM in SODIUM CHLORIDE 0.9% (POP) 100 ML IV (19:28)
[2025-01-09 19:38] LABS: Amphetamine/Methamp Scrn,U Negative (Negative); Barbiturate Screen,Urine Negative (Negative); Benzodiazepines Screen,Urine Negative (Negative); Benzoylecgonine Screen, Ur Negative (Negative); Fentanyl Screen,Urine Negative (Negative); Opiate Screen,Urine Positive (Negative); THC Screen,Urine Positive (Negative)
[2025-01-09 20:00] LABS: Base Excess -1 (-3-3); HCO3 23 mEq/L (20-26); Inspired Oxygen, FIO2 21 %; O2 Saturation 94 % (91-98); PCO2 37 mmHg (32.0-48.0); PO2 77 mmHg (83-108); pH, Arterial 7.41 (7.35-7.45)
[2025-01-09 20:01] LABS: Allen Test Not Performed; Puncture Site Left Radial
[2025-01-09 20:17] LABS: LDH (Lactate Dehydrogenase) 185 U/L (120-246); Phosphorous 3.5 mg/dL (2.4-5.1)
[2025-01-09] MEDS: FAMOTIDINE INJ 10 MG/ML VIAL 2 ML 20 MG IVP (21:08)
[2025-01-09] MEDS: MG HYD/AL HYD/SIME (Maalox Reg) SUSP 30 ML UDC PO (21:11)
== END 2025-01-09 21:36 | disposition home or self-care (01) ==
PROVIDERS: Family Medicine; Nurse Practitioner Family; Emergency Provider Emergency Medicine; PCP Nurse Practitioner
DX: J43.9 Emphysema, unspecified (principal); E11.9 Type 2 diabetes mellitus without complications; I10 Essential (primary) hypertension; E78.5 Hyperlipidemia, unspecified
CPT/HCPCS: 36415; 36600; 71045; 71275; 74174; 76705; 80053; 80307; 81001; 82803; 83605; 83615; 83690; 83735; 83880; 84100; 84145; 84484; 85025; 85610; 85730; 87040; 93005; 96361; 96365; 96367; 96375; 96376; 99285; A4649; J0131; J0696; J2270; J2405; J2470; J2543; J3490; J7030; J7050; Q9967; A9270

== ENCOUNTER 2025-01-10 11:12 | Inpatient (IN) | payer MEDICARE, MEDICAID, SELFPAY ==
[2025-01-10] VITALS (7 sets, daily range): BP systolic 113–147; BP diastolic 49–99; PULSE 64–100; RESP 16–22; TEMP 36.6–37; O2SAT 94–98; BMI 32.1
--- NOTE | 2025-01-10 | XR_ITS ---
MRI abdomen, without contrast. MRCP Date and time of exam: January 10, 20252017 hours INDICATIONS: Right upper abdominal pain epigastric pain beginning yesterday Technique: Multiple axial and coronal images of the abdomen have been obtained with the Siemens 1.5T MRI scanner. Images obtained included T1 weighted transverse images, T2-weighted transverse images, T2-weighted transverse images fat-suppressed, T2 weighted haste fat suppressed transverse images, T1 weighted images, in and out of phase images, T2-weighted coronal images, breath hold, T2 weighted haze coronal images as well as T2 weighted coronal thick slab images, MRCP. Findings: No focal liver lesions Stone in the gallbladder neck Negative for cholelithiasis Normal hepatic common bile ducts no stones No pancreatic edema No splenic lesion No ascites Aorta normal size IMPRESSION: Cholelithiasis, negative for cholecystitis Negative for common hepatic or common bile duct stones
--- NOTE | 2025-01-10 11:39 | EDNOTE_ITS ---
ED Abdominal Pain RME/HPI General Chief Complaint: Abdominal Pain Stated complaint: RIGHT UPPER ABD PAIN Time seen by provider: 01/10/25 11:43 Arrival date/time: 01/10/25 11:12 RME / HPI RME / HPI narrative: DR. TAYLOR MAIN ED EVALUATION: 64 year old male with past medical history significant for abdominal aortic aneurysm, hypertension, diabetes, hyperlipidemia, COPD, and marijuana use presents to the Emergency Department with complaint of right upper quadrant pain today, yesterday was seen for epigastric pain but today is more on the right upper quadrant area. Pain is described as aching and rated severe in severity. Associated symptoms include decreased appetite. He also mentions that last night he smoked a joint and relaxed but today was only able to drink some sips of coffee and pain worse. No nausea or vomiting. No history of abdominal surgeries. Related Data Home Medications ?Medication ?Instructions ?Recorded ?Confirmed amlodipine 10 mg tablet 10 mg PO QDAY 10/10/2401/09 aspirin 81 mg capsule 81 mg PO QDAY 10/10/2401/09 fluticasone furoate 200 1 inh inhalation QDAY 01/09/25 mcg-vilanterol 25 mcg/dose inhalation powder lisinopril 20 1 tab PO QDAY 10/10/2401/09 mg-hydrochlorothiazide 12.5 mg tablet metformin 500 mg tablet,extended 500 mg PO BID 4 01/09/25 release 24 hr Held on 11/29/24. Instructions: Resume on 12/01/24. albuterol sulfate 90 mcg/actuation 1 puff inhalation Q 1H PRN 11/29/24 01/09/25 aerosol inhaler shortness of breath or wheez ing empagliflozin 25 mg tablet 25 mg PO QDAY 11/29/2412/22 (Jardiance) aspirin 81 mg tablet,delayed mg 01/09/25 release clopidogrel 75 mg tablet (Plavix) 75 mg PO QDAY 01/09/25 Previous Rx's ?Medication ?Instructions ?Recorded aluminum-mag hydroxide-simethicone 15 ml PO QID PRN dy spepsia #3,000 01/09/25 200 mg-200 mg-20 mg/5 mL oral susp mL (Maalox Advanced) famotidine 20 mg tablet (Pepcid) 20 mg PO BID Gastriti s 5 days #10 01/09/25 tabs ondansetron 4 mg disintegrating 4 mg PO Q6H PRN nausea and 01/09/25 tablet vomiting #14 tabs pantoprazole 40 mg tablet,delayed 40 mg PO QDAY Gastri tis #7 tabs 01/09/25 release sucralfate 1 gram tablet 1 g PO TID 7 days #21 tabs 0 01/09/25 Allergies Allergy/AdvReac Type Severity Reaction Status Date / Time codeine Allergy Intermediate Hives Verified 01/10/25 11:15 Bee Stings Allergy Intermediate Rash Uncoded 01/10/25 11:15 Review of Systems Review of Systems Systems Reviewed: All systems reviewed, normal except as documented Past Medical History Past Medical History NEUROLOGIC: Positive Neurological Disorders (forgetful); Negative Seizures CARDIAC: Positive Cardiac Disorders (leaky hear valve), Angina, Hypercholesterolemia and Hypertension; Negative Congestive Heart Failure RESPIRATORY: Positive Chronic Obstructive Pulmonary Disease (COPD) and Asthma (copd); Negative Sleep Apnea GASTROINTESTINAL: Positive Gastrointestinal Disorders, Gastroesophageal Reflux Disease and Obesity; Negative Ulcer GENITOURINARY: Negative Genitourinary Disorders or Renal Disease MUSCULOSKELETAL: Negative Musculoskeletal Disorders or Arthritis ENT: Positive Cataracts; Negative Blind ENDOCRINE: Positive Endocrine Disorders and Diabetes Mellitus Type 2; Negative Diabetes Mellitus Type 1 HEMATOLOGIC: Negative Blood Disorders or Sickle Cell Disease PSYCHO/SOCIAL: Positive Recreational Drug Use (MARIJUANA), Depression and Anxiety; Negative Post Traumatic Stress Disorder OTHER HISTORY: Positive Chicken Pox, Measles and Mumps; Negative Autoimmune Disease, Blood Transfusions, Anesthesia Reactions, Organ Transplant, MRSA, Clostridium Difficile or Cancer Family History FAMILY HISTORY: Negative Family Respiratory Disorders or Family Cardiac Disorders Surgical History SURGICAL: Positive Eye Surgery (FACIAL RECONSTRUCTION); Negative Cardiac Surgery, Pacemaker, Endocrine Surgery, Ear Surgery, Abdominal Surgery, Nephrectomy, Joint Replacement, Neurologic Surgery, Mastectomy, Vasectomy or Organ Transplant Social History SMOKING STATUS: Never smoker SUBSTANCE USE: marijuana ALCOHOL: Never ED Exam Narrative Physical exam: GENERAL APPEARANCE: AxOx4, in severe distress but nontoxic; sitting forward, hunched HEENT: NC, AT. MMM. EOMI, clear conjunctiva, oropharynx clear. NECK: Supple without lymphadenopathy. No stiffness or restricted ROM. HEART: Normal rate and regular rhythm, normal S1/S1, no m/r/g LUNGS: CTAB, moving air well. No crackles or wheezes are heard. ABDOMEN: Soft, nontender, nondistended with good bowel sounds heard. BACK: No midline C/T/L spine pain or deformity, No CVAT, no obvious deformity. EXTREMITIES: Without cyanosis, clubbing or edema. MUSCULOSKELETAL: FROM of all major joints, no chest tenderness NEUROLOGICAL: Grossly nonfocal. Alert and oriented, moving all 4 extremities. CN not formally tested but appear grossly intact. Observed to ambulate with normal gait. Skin: Warm and dry without any rash. Course Course Course Narrative: 1800: Patient was signed out to Dr. Summers. Past medical, surgical, social and family history reviewed. Vitals and home medications reviewed. Results and treatment plan discussed. They will assume the care of the patient at this time and will follow the patient, pending MRCP and final disposition. Quality Measures none Orders Category Date Time Status COVID-19 Screening Questionnaire NOW Care 01/10/25 22:14 Active Decision to Admit X1 Care 01/10/25 22:14 Active MRI Screening NOW Care 01/10/25 14:18 Active Consult to General Surgery Stat Cons 01/10/25 22:15 Ordered MR MRCP Stat Exams 01/10/25 Completed US gall bladder Stat Exams 01/10/25 11:44 Completed CBC Stat Lab 01/10/25 12:18 Completed CMP [Comprehensive Metabolic Panel] Stat Lab 01/10/25 12:18 Completed Lactate (Lactic Acid) Stat Lab 01/10/25 12:18 Completed Lipase Stat Lab 01/10/25 12:18 Completed Procalcitonin Stat Lab 01/10/25 12:18 Completed Troponin I Stat Lab 01/10/25 12:18 Completed Ketorolac Inj [Toradol Inj] Med 01/10/25 11:44 Discontinued 15 mg IVP X1 ONE Ketorolac Inj [Toradol Inj] Med 01/10/25 21:15 Discontinued 15 mg IVP X1 ONE Morphine Inj Med 01/10/25 14:50 Discontinued 4 mg IVP X1 ONE Morphine Inj Med 01/10/25 21:15 Discontinued 6 mg IVP X1 ONE Morphine Inj Med 01/10/25 11:44 Discontinued 8 mg IVP X1 ONE Piper/Tazo 3.375 gm Premix [Zosyn] Med 01/10/25 22:15 Ordered 3.375 gm in 50 ml IV X1 Sodium Chloride 0.9% 1000 ml [Ns] 1,000 ml Med 01/10/25 11:44 Discontinued IV 999 mls/hr Sodium Chloride 0.9% 1000 ml [Ns] 1,000 ml Med 01/10/25 14:51 Discontinued IV 999 mls/hr Vital Signs Vital signs: Vital Signs Temperature 97.9 F 01/10/25 11:33 Pulse Rate 99 01/10/25 11:33 Respiratory Rate 20 01/10/25 11:33 Blood Pressure 135/99 H 01/10/25 11:33 Pulse Oximetry (%) 95 01/10/25 11:33 Oxygen Delivery Method Room Air 01/10/25 11:33 Abdominal Pain MDM MDM Narrative MDM Narrative:: I, Mulu Lofton, letty scribing for and in the presence of Dr. Taylor. Patient data External records reviewed:: [facility] previous records (Reviewed last ED visit dated 01/09/25, discharged with the following: Acute epigastric pain) Clinical information provided by:: patient Social determinants that could affect healthcare access:: substance use (marijuana use) Patient has the following chronic illnesses:: abdominal aortic aneurysm, hypertension, diabetes, hyperlipidemia, and COPD How is presenting disease/condition affected by chronic disease/condition?: exacerbated by Evaluation data The following diagnostics were reviewed and interpreted by me:: lab results and radiology exam(s) Lab and/or radiology exams considered but not ordered:: none Interpretation Summary: Procedure(s): US gall bladder Accession Number(s): [id number] cc: Nancy Hicks; Wale Taylor MD; Binh Patel MD~ Examination: Abdomen sonogram, Limited Date and time of exam: January 10, 2025 1221 hours INDICATIONS: Epigastric pain beginning 3 days ago with right upper abdominal pain Technique: Real-time bains scale transabdominal sonographic images of the upper abdomen obtained. Findings: Cholelithiasis, gallbladder wall 0.45 cm Common bile duct 0.6 cm Pancreatic head 3.0 cm Liver 19.1 cm lobular contour fatty infiltration Normal hepatopedal portal venous flow Patent IVC IMPRESSION: Cholelithiasis, abnormal thickening of the gallbladder wall, consider HIDA scan or MRCP follow-up as clinically warranted Cirrhosis versus primary hepatocellular disease Dictated By: Binh Patel MD Medications / Prescriptions Medications or Prescriptions considered but not ordered:: none Medication administrations:: Medication Administration History Piperacillin/Tazobactam/Dextrose (Zosyn) 3.375 gm in 50 mls @ 100 mls/hr IV X1 ONE Stop: 01/10/25 22:44 Discontinued Medications Sodium Chloride (Ns) 1,000 mls @ 999 mls/hr IV .Q1H1M ONE Stop: 01/10/25 12:44 Last Infusion: 01/10/25 15:13 Dose: Infused Documented By: Admin: 01/10/25 14:13 Dose: 999 mls/hr Documented By: ISSA Sodium Chloride (Ns) 1,000 mls @ 999 mls/hr IV .Q1H1M ONE Stop: 01/10/25 15:51 Last Infusion: 01/10/25 16:02 Dose: Infused Documented By: Admin: 01/10/25 15:02 Dose: 999 mls/hr Documented By: NOEMY Ketorolac Tromethamine (Ketorolac Inj 30 Mg/Ml Vial) 15 mg IVP X1 ONE Stop: 01/10/25 11:45 Last Admin: 01/10/25 15:01 Dose: 15 mg Documented By: NOEMY Ketorolac Tromethamine (Ketorolac Inj 30 Mg/Ml Vial) 15 mg IVP X1 ONE Stop: 01/10/25 21:16 Last Admin: 01/10/25 21:26 Dose: 15 mg Documented By: ISREAL Morphine Sulfate (Morphine Sulf Inj 10 Mg/Ml Vial) 8 mg IVP X1 ONE Stop: 01/10/25 11:45 Last Admin: 01/10/25 14:54 Dose: Not Given Documented By: NOEMY Non-Admin Reason: duplicaiton Morphine Sulfate (Morphine Sulf Inj 10 Mg/Ml Vial) 4 mg IVP X1 ONE Stop: 01/10/25 14:51 Last Admin: 01/10/25 14:59 Dose: 4 mg Documented By: NOEMY Morphine Sulfate (Morphine Sulf Inj 10 Mg/Ml Vial) 6 mg IVP X1 ONE Stop: 01/10/25 21:16 Last Admin: 01/10/25 21:28 Dose: 6 mg Documented By: ISREAL see above Consultations Consultation(s) initiated? (list below): No Diagnosis Differential diagnosis abdominal pain: abdominal pain, calculus of kidney, diver ticulitis and other (gallstones) Most likely diagnosis given after review of the tests above:: No official diagnoses at this time, still pending diagnostic tests. Patient signout to the cardiac catheterization technologist provider. Admission Indicated Admission indicated?: not indicated Explain why admission is indicated or not indicated:: No final disposition plan at this time, still pending diagnostic tests. Patient signout to the cardiac catheterization technologist provider. Admission Request Was there a request for admission?: No Disposition Plan Disposition Plan: other (specify) (Patient signout to the cardiac catheterization technologist provider, pending MRCP and final disposition.) Discharge Plan Plan Patient Disposition: Admit Acute Care w/in Hospital Prescriptions/Referrals Prescriptions/Med Rec: No Action lisinopril-hydrochlorothiazide 20-12.5 mg Tablet 1 tab PO QDAY amlodipine 10 mg Tablet 10 mg PO QDAY metformin 500 mg Tablet Extended Release 24 Hr 500 mg PO BID fluticasone furoate-vilanterol 200-25 mcg/dose Blister With Device 1 inh INHALATION QDAY aspirin 81 mg Capsule 81 mg PO QDAY aspirin 81 mg tablet,delayed release (DR/EC) clopidogrel [Plavix] 75 mg tablet 75 mg PO QDAY famotidine [Pepcid] 20 mg tablet 20 mg PO BID 5 Days Qty: 10 0RF pantoprazole 40 mg tablet,delayed release (DR/EC) 40 mg PO QDAY Qty: 7 0RF sucralfate 1 gram tablet 1 g PO TID 7 Days Qty: 21 0RF alum-mag hydroxide-simeth [Maalox Advanced] 200-200-20 mg/5 mL suspension 15 ml PO QID PRN (Reason: dyspepsia) Qty: 3000 0RF Rx Instructions: administer between meals and at bedtime ondansetron 4 mg tablet,disintegrating 4 mg PO Q6H PRN (Reason: nausea and vomiting) Qty: 14 0RF albuterol sulfate 90 mcg/actuation HFA aerosol inhaler 1 puff INHALATION Q1H PRN (Reason: shortness of breath or wheezing) Jardiance 25 mg tablet 25 mg PO QDAY Referrals: Nancy Hicks FNP [Primary Care Provider] - In 1 week Problem List Clinical Impression: Acute cholecystitis Patient/Caregiver Discharge Instructions Print Language: Tajik Stand Alone Forms: Jie Award Info., Patient Portal Info Letter Attestation Attestation I took over the care from Dr. Taylor at 6 PM on 01/10/2025, see his notes for complete H&P and ED course. My review of the MRCP report is cholecystitis. At 2205, discussed case with Dr. Martinez from general surgery regarding consultation. Discussed patients ED course, exam findings, labs, and radiology results. States to keep the patient NPO at midnight and to admit the patient to the hospitalist. At 2213, discussed case with Dr. Miranda, attending Dr. Massey from Hospitalist service regarding admission. Discussed patients ED course, exam findings, labs, and radiology results. The Hospitalist agrees to accept the patient for admission. Miguel A Summers MD
--- NOTE | 2025-01-10 11:44 | XR_ITS ---
Examination: Abdomen sonogram, Limited Date and time of exam: January 10, 2025 1221 hours INDICATIONS: Epigastric pain beginning 3 days ago with right upper abdominal pain Technique: Real-time bains scale transabdominal sonographic images of the upper abdomen obtained. Findings: Cholelithiasis, gallbladder wall 0.45 cm Common bile duct 0.6 cm Pancreatic head 3.0 cm Liver 19.1 cm lobular contour fatty infiltration Normal hepatopedal portal venous flow Patent IVC IMPRESSION: Cholelithiasis, abnormal thickening of the gallbladder wall, consider HIDA scan or MRCP follow-up as clinically warranted Cirrhosis versus primary hepatocellular disease
[2025-01-10 12:27] LABS: Lactate (Lactic Acid) 1.5 mMol/L (0.4-2.0)
[2025-01-10 12:30] LABS: Basophils # (Auto) 0.1 Thou/mm3 (0.0-0.2); Basophils % (Auto) 0 % (0-2.5); Eosinophils # (Auto) 0.2 Thou/mm3 (0.0-0.5); Eosinophils % (Auto) 1 % (0-10); Hematocrit 49.2 % (41.0-53.0); Immature Granulocytes % (Auto) 1 % (0-0); Immature Granulocytes Auto 0.08 Thou/mm3 (0.00-0.00); Lymphocytes # (Auto) 2.7 Thou/mm3 (1.0-4.8); Lymphocytes % (Auto) 20 % (10-50); Mean Corpuscular HGB Conc 34.6 g/dl (31.0-37.0); Mean Corpuscular Hemoglobin 29.6 pg (25.0-35.0); Mean Corpuscular Volume 86 fL (80-100); Monocytes # (Auto) 1.2 Thou/mm3 (0.0-0.8); Monocytes % (Auto) 9 % (0-12); Neutrophils # (Auto) 9.3 Thou/mm3 (1.8-7.7); Neutrophils % (Auto) 69 % (37-80); Nucleated Red Blood Cell % 0 /100 WBC (0); Platelet Count 306 Thou/mm3 (140-440); RDW Standard Deviation 41.4 fL (35.1-43.9); Red Blood Count 5.75 Miln/mm3 (4.50-5.90); White Blood Count 13.5 Thou/mm3 (3.8-10.6)
[2025-01-10 12:59] LABS: Alanine Aminotransferase 27 U/L (10-49); Albumin, Serum 5.1 gm/dL (3.4-4.8); Albumin/Globulin Ratio 1.9 (1.2-2.2); Alkaline Phosphatase 86 U/L (46-116); Anion Gap 11 (7-16); Aspartate Amino Transferase 21 U/L (0-34); BUN/Creatinine Ratio 17 Ratio (12-20); Bilirubin,Total 0.6 mg/dL (0.3-1.2); Blood Urea Nitrogen 17 mg/dL (9-23); Calcium 9.9 mg/dL (8.3-10.6); Calcium (Corrected) 9.9 mg/dL (8.5-10.1); Carbon Dioxide 24.1 mMol/L (20.0-31.0); Chloride 102 mMol/L (98-107); Globulin 2.7 gm/dL (2.3-3.5); Glucose 130 mg/dL (74-106); Lipase 67 U/L (12-53); Osmolality,Calculated 277 (275-295); Potassium 4.4 mMol/L (3.4-5.1); Procalcitonin 0.08 ng/ml (0.0-0.49); Sodium 137 mMol/L (136-145); Total Protein 7.8 gm/dL (5.7-8.2); Troponin I < 0.002 ng/mL (0.0-0.045); eGFR > 60 See Note
[2025-01-10] MEDS: SODIUM CHLORIDE 0.9% 1000 ML 1,000 ML 999 ML IV ×2 (14:13→15:02)
[2025-01-10] MEDS: MORPHINE SULF INJ 10 MG/ML VIAL 4 MG IVP (14:59)
[2025-01-10] MEDS: KETOROLAC INJ 30 MG/ML VIAL 15 MG IVP ×2 (15:01→21:26)
--- NOTE | 2025-01-10 19:05 | PC.NURSE ---
ASSUMED CARE OF PATIENT, PT ALERT AND ORIENTED COMING FOR ABDOMINAL PAIN. PT DENIED WANTING IN PAIN MEDS. PT WAITING FOR MRCP AND WAS TOLD BY [facility] THAT THE MRI WILL BE DONE TONIGHT. PT MADE AWARE AND HAS NO CONCERNS AT THIS TIME. WILL CONTINUE WITH PLAN OF CARE
--- NOTE | 2025-01-10 20:04 | PD.EDADDENDU ---
Emergency Room Addendum <Saba Mitchell - Last Filed: 01/10/25 22:14> Addendum Narrative: I took over the care from Dr. Cat at 6 PM on 01/10/2025, see his notes for complete H&P and ED course. I reviewed all diagnostic test results. My review of the MRI report is At 2204, discussed case with Dr. Martinez from general surgery regarding consultation. Discussed patients ED course, exam findings, labs, and radiology results. States to keep the patient NPO at midnight and to admit the patient to the hospitalist. At 2213, discussed case with Dr. Miranda, attending Dr. Massey from Hospitalist service regarding admission. Discussed patients ED course, exam findings, labs, and radiology results. The Hospitalist agrees to accept the patient for admission. <Miguel A Summers MD - Last Filed: 01/10/25 22:21> Addendum Narrative: I took over the care from Dr. Cat at 6 PM on 01/10/2025, see his notes for complete H&P and ED course. My review of the MRCP report is cholecystitis. At 2204, discussed case with Dr. Martinez from general surgery regarding consultation. Discussed patients ED course, exam findings, labs, and radiology results. States to keep the patient NPO at midnight and to admit the patient to the hospitalist. At 2213, discussed case with Dr. Miranda, attending Dr. Massey from Hospitalist service regarding admission. Discussed patients ED course, exam findings, labs, and radiology results. The Hospitalist agrees to accept the patient for admission. Miguel A Summers MD
--- NOTE | 2025-01-10 20:30 | PC.NURSE ---
PT TO MRI
[2025-01-10] MEDS: MORPHINE SULF INJ 10 MG/ML VIAL 6 MG IVP (21:28)
--- NOTE | 2025-01-10 23:11 | ESHP_ITS ---
<Statement entered by Larisa Massey MD - 01/12/25 05:34> I reviewed above note and agree with findings and plans. I have also personally examined the patient with medicine team and went over assessment and plan with medical team including chemical engineering intern and resident physician. Documentation for date of: 01/10/25 HPI History of Present Illness Chief complaint: Abdominal pain for 2 days before admission History of present illness: HPI: A 64-year-old male patient with past medical history of hypertension, diabetes mellitus, COPD, aortic insufficiency, remote history of pneumothorax, presented to the ED due to history of abdominal pain for the past 2 days. Patient said that the pain started in his right upper quadrant and epigastric area awakened him from sleeping. He reported that the pain is associated with nausea and anorexia however no vomiting or fever. He reported that he does not know if there is a relationship with As the patient reported that he has not been eating well since the pain started. Patient denied any diarrhea or constipation. Denied any shortness of breath or cough. 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 On review of patient chart, there was an MAIKEL was done in September 2024 and showed the aortic root and ascending aorta is severely dilated. Ascending aorta at 5.0cm. Moderate to severe AI. central AI. On small PFO. Normal ejection fraction. Infrarenal abdominal aortic aneurysm, AP dimension 4.1 cm mediolateral dimension 4.0 cm, cephalocaudad dimension 8.60 Home medications: Pending med reconciliation ED course: sepsis with heart rate of 99, blood pressure of 135/99, there was no fever saturating 95% on room air. WBC was found to be 13.5, hemoglobin 17.7, his CMP was within normal limits, T. bili and AST and ALT follow-up within normal limits, alk phos normal. On imaging ultrasound showed abnormal wall thickening of the gallbladder with cholelithiasis. It was also seen that the patient might have cirrhosis. Hepatocellular disease. PMH: As above PSX: Facial reconstruction, cataract surgery, chest tube insertion for pneumothorax Social hx: Alcohol: Denied Tobacco: History of 40 years smoking 2 to 3 packs/day Illicit drugs: Current marijuana user, remote history of meth abuse Allergies: Codeine Review of Systems Review of Systems Systems Reviewed: All systems reviewed, normal except as documented Exam Vital Signs Temp Pulse Resp BP Pulse Ox O2 Del Method O2 Flow Rate 98.4 F 64 18 113/49 L 94 L Room Air 2 01/10/25 22:14 01/10/25 22:14 01/10/25 22:14 01/10/25 22:14 01/10/25 22:14 01/10/25 22:14 01/10/25 16:00 Narrative Exam GEN: AOx3, able to speak full sentences HEENT: NC/AC, PERRLA, oral mucosa moist, neck supple CVS: RRR, muffled S1-S2 present, no murmurs appreciated RESP: Decreased air entry sound B/L GI: soft,non distended, RUQ tenderness, NBS MSK: able to move all 4 limbs, no lower extremity edema SKIN: warm and dry LINK TRAINER MAINTENANCE MAN: CN II-XII and Sensation grossly intact. Results: Labs 01/10/25 12:18 01/10/25 12:18 Labs: Short CBC 01/10/25 Range/Units 12:18 WBC 13.5 H D (3.8-10.6) Thou/mm3 Hgb 17.0 H (13.5-16.0) g/dL Hct 49.2 (41.0-53.0) % Plt Count 306 D (140-440) Thou/mm3 BMP 01/10/25 12:18 Sodium 137 Potassium 4.4 Chloride 102 Carbon Dioxide 24.1 BUN 17 Creatinine 1.0 Glucose 130 H Calcium 9.9 Cardiac Enzymes 01/10/25 Range/Units 12:18 Troponin I < 0.002 (0.0-0.045) ng/mL Liver Function 01/10/25 Range/Units 12:18 Total Bilirubin 0.6 (0.3-1.2) mg/dL AST 21 (0-34) U/L ALT 27 (10-49) U/L Alkaline Phosphatase 86 (46-116) U/L Albumin 5.1 H (3.4-4.8) gm/dL Quality Measures Quality Measures none Medications Home Medications and Allergies Home Medications ?Medication ?Instructions ?Recorded ?Confirmed ?Type amlodipine 10 mg tablet 10 mg PO QDAY 10/10/2401/11 History aspirin 81 mg capsule 81 mg PO QDAY 10/10/2401/11 History Held on 01/11/25. Instructions: Doctor's Order fluticasone furoate 200 1 inh inhalation QDAY 01/11/25 History mcg-vilanterol 25 mcg/dose inhalation powder lisinopril 20 1 tab PO QDAY 10/10/2401/11 History mg-hydrochlorothiazide 12.5 mg tablet metformin 500 mg tablet,extended 500 mg PO BID 4 01/11/25 History release 24 hr albuterol sulfate 90 mcg/actuation 1 puff inhalation Q 1H PRN 11/29/24 01/11/25 History aerosol inhaler shortness of breath or wheez ing empagliflozin 25 mg tablet 25 mg PO QDAY 11/29/2412/23 History (Jardiance) aspirin 81 mg tablet,delayed 81 mg PO QDAY 01/09/25 History release clopidogrel 75 mg tablet (Plavix) 75 mg PO QDAY 01/11/25 History Held on 01/11/25. Instructions: Doctor's Order Allergies Allergy/AdvReac Type Severity Reaction Status Date / Time codeine Allergy Intermediate Hives Verified 01/10/25 11:15 Bee Stings Allergy Intermediate Rash Uncoded 01/10/25 11:15 Visit Medications Acetaminophen (Acetaminophen 325 Mg Tablet) 650 mg PO Q6H PRN PRN Reason: Fever >101.5 Stop: 02/09/25 22:58 Acetaminophen (Acetaminophen 325 Mg Tablet) 650 mg PO Q6H PRN PRN Reason: PAIN SCALE 1-3 (mild Stop: 02/09/25 22:58 Albuterol (Albuterol Rt 2.5 Mg/0.5 Ml Nebu) 2.5 mg INH Q2HR PRN PRN Reason: SHORTNESS OF BREATH OR WHEEZE Stop: 02/09/25 22:56 Bisacodyl (Bisacodyl 5 Mg Tabec) 10 mg PO QDAY PRN; Protocol PRN Reason: CONSTIPATION Stop: 02/09/25 22:58 Dextrose (Dextrose 50%-Water Inj 50 Ml Syringe) 25 ml IV Q15MIN PRN PRN Reason: BG 50-70 responsive npo pt Stop: 02/09/25 23:06 Dextrose (Dextrose 50%-Water Inj 50 Ml Syringe) 50 ml IV Q15MIN PRN PRN Reason: BG <50 OR BG <70 & pt unresponsive Stop: 02/09/25 23:06 Glucagon (Glucagon Inj 1 Mg Vial) 1 mg IM Q15MIN PRN PRN Reason: BG <70, and no IV access Sodium Chloride (Ns) 1,000 mls @ 75 mls/hr IV .[id number] [facility] Stop: 01/11/25 07:59 Piperacillin Sod/Tazobactam (Sod 4.5 gm/ Sodium Chloride) 100 mls @ 200 mls/hr IV Q6HR [facility] Stop: 01/17/25 23:09 Insulin Human Lispro (Insulin Lispro (Admelog) 1 Unit/0.01 Ml Unit) 0 unit SC AC [facility]; Protocol Stop: 02/10/25 07:29 Ondansetron HCl (Ondansetron Inj 2 Mg/Ml Inj 2 Ml) 4 mg IV Q6H PRN; Protocol PRN Reason: NAUSEA OR VOMITING Stop: 02/09/25 22:58 Pantoprazole Sodium (Pantoprazole 40 Mg Tablet) 40 mg PO QDAY [facility] Stop: 02/10/25 08:59 Sodium Chloride (Sodium Chloride Rt Isis 0.9% 3 Ml Nebu) 3 ml INH PRN PRN PRN Reason: SOLN Stop: 02/09/25 22:56 Discontinued Medications Sodium Chloride (Ns) 1,000 mls @ 999 mls/hr IV .Q1H1M ONE Stop: 01/10/25 12:44 Last Infusion: 01/10/25 15:13 Dose: Infused Sodium Chloride (Ns) 1,000 mls @ 999 mls/hr IV .Q1H1M ONE Stop: 01/10/25 15:51 Last Infusion: 01/10/25 16:02 Dose: Infused Piperacillin Sod/Tazobactam (Sod 3.375 gm/ Sodium Chloride) 50 mls @ 100 mls/hr IV X1 ONE Stop: 01/10/25 22:59 Ketorolac Tromethamine (Ketorolac Inj 30 Mg/Ml Vial) 15 mg IVP X1 ONE Stop: 01/10/25 11:45 Last Admin: 01/10/25 15:01 Dose: 15 mg Ketorolac Tromethamine (Ketorolac Inj 30 Mg/Ml Vial) 15 mg IVP X1 ONE Stop: 01/10/25 21:16 Last Admin: 01/10/25 21:26 Dose: 15 mg Morphine Sulfate (Morphine Sulf Inj 10 Mg/Ml Vial) 8 mg IVP X1 ONE Stop: 01/10/25 11:45 Last Admin: 01/10/25 14:54 Dose: Not Given Morphine Sulfate (Morphine Sulf Inj 10 Mg/Ml Vial) 4 mg IVP X1 ONE Stop: 01/10/25 14:51 Last Admin: 01/10/25 14:59 Dose: 4 mg Morphine Sulfate (Morphine Sulf Inj 10 Mg/Ml Vial) 6 mg IVP X1 ONE Stop: 01/10/25 21:16 Last Admin: 01/10/25 21:28 Dose: 6 mg Assessment & Plan Plan Summary: A 64-year-old male patient with past medical history of hypertension, diabetes mellitus, COPD, aortic insufficiency, remote history of pneumothorax, presented to the ED due to history of abdominal pain for the past 2 days. Patient said that the pain started in his right upper quadrant and epigastric area awakened him from sleeping. Patient was admitted for acute cholecystitis management. Plan: #Acute cholecystitis Patient presented with sepsis secondary to acute cholecystitis. Heart rate 99, WBC 13.5, ultrasound showed gallbladder wall thickening and cholelithiasis. MRCP Showed Stone in the gallbladder neck, and was negative for any common bile duct Dilatation. The general surgeon Dr. Martinez was consulted by the ED team and recommended to admit the patient. Plan ? Admit patient to telemetry ? Recommend cardiac clearance before the surgery ? Start the patient on Zosyn 4.5 mg 4 times daily ? Keep the patient n.p.o. after midnight ? Start the patient on gentle IV fluids 75 mL/h NS ? Pain management with Tylenol. ?Follow-up with the general surgeon recommendations. 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 Chest/Abdomen/Pelvice CTA showed severe bullous disease left apex, 2021 patient has had pneumothorax in which he required chest tube insertion plan - Duonebs PRN Q8HRRT - O2 as needed - Consider adding his pulmonary disease risk stratification before the surgery #History of aortic Aneurism #History of moderate to severe aortic valve insufficiency #History of PFO In review of the patient's chart we noticed that the patient has multiple imaging including abdominal CTA which showed 3 mm pulmonary nodule right lower lobe, Infrarenal abdominal aortic aneurysm, AP dimension 4.1 cm mediolateral dimension 4.0 cm, cephalocaudad dimension 8.60 dimension 3.8 cm on September 12, 2022, MAIKEL which was recently done in September [address] Renita Pruitt showed The aortic root and ascending aorta is severely dilated. Ascending aorta at 5.0cm. Moderate to severe AI. central AI. Vena contracte width of 0.98 cm. An intravenous agitated saline injection indicated a small PFO across the atrial septum release by agitation saline injection. EF was 55 to 60%. Plan - Consider consulting cardiology team for clearance. - Obtain old medical records #hx of DM plan - A1c level - ISS - Hypoglycemia protocol in place #Hx of HTN plan - At this time his BP trend in the NML range, - Consider resuming home med after med rec and med rec Hospital Maintenance: FEN:NPO after mid-night DVT ppx:SCD GI ppx:Protonix IV lines:PIV Gore:No Code status:Full code Dispo:Telemetry - Patient's plan and care discussed with my attending, Dr. Shilpa Miranda MD Internal Medicine PGY-2
[2025-01-10] MEDS: PIPER/TAZO INJ 3.375 GM in SODIUM CHLORIDE 0.9% (Popper) 50 ML IV (23:58)
[2025-01-10] MEDS: SODIUM CHLORIDE 0.9% 1000 ML 1,000 ML 75 ML IV (23:58)
[2025-01-11] VITALS (12 sets, daily range): BP systolic 109–159; BP diastolic 54–89; PULSE 62–88; RESP 16–97; TEMP 36.5–37.2; O2SAT 93–97
[2025-01-11 04:59] LABS: Basophils % (Auto) 0 % (0-2.5); Eosinophils # (Auto) 0.2 Thou/mm3 (0.0-0.5); Eosinophils % (Auto) 2 % (0-10); Hematocrit 41.1 % (41.0-53.0); Hemoglobin 14.2 g/dL (13.5-16.0); Immature Granulocytes % (Auto) 1 % (0-0); Immature Granulocytes Auto 0.06 Thou/mm3 (0.00-0.00); Lymphocytes # (Auto) 2.4 Thou/mm3 (1.0-4.8); Lymphocytes % (Auto) 30 % (10-50); Mean Corpuscular HGB Conc 34.5 g/dl (31.0-37.0); Mean Corpuscular Volume 87 fL (80-100); Monocytes % (Auto) 12 % (0-12); Neutrophils # (Auto) 4.5 Thou/mm3 (1.8-7.7); Neutrophils % (Auto) 55 % (37-80); Nucleated Red Blood Cell % 0 /100 WBC (0); Platelet Count 233 Thou/mm3 (140-440); RDW Standard Deviation 41.6 fL (35.1-43.9); Red Blood Count 4.74 Miln/mm3 (4.50-5.90); White Blood Count 8.2 Thou/mm3 (3.8-10.6)
[2025-01-11 05:18] LABS: Partial Thromboplastin Time 29.4 Seconds (22.0-36.0); Prothrombin Time 11.1 Seconds (9.0-12.2)
[2025-01-11 05:21] LABS: Glucose Estimated Average 143 mg/dL (80-131); Hemoglobin A1C 6.6 % Hgb (4.8-6.0)
[2025-01-11] MEDS: MORPHINE SULF INJ 10 MG/ML VIAL 2 MG IVP ×2 (05:21→09:18)
[2025-01-11 05:23] LABS: Alanine Aminotransferase 24 U/L (10-49); Albumin, Serum 4.1 gm/dL (3.4-4.8); Alkaline Phosphatase 70 U/L (46-116); Anion Gap 9 (7-16); Aspartate Amino Transferase 15 U/L (0-34); BUN/Creatinine Ratio 19 Ratio (12-20); Blood Urea Nitrogen 21 mg/dL (9-23); Carbon Dioxide 26.9 mMol/L (20.0-31.0); Chloride 104 mMol/L (98-107); Creatinine (Component) 1.1 mg/dL (0.6-1.3); Estimated Creatinine Clearance 88.2 mL/min (>60); Glucose 139 mg/dL (74-106); Magnesium 2.2 mg/dL (1.6-2.6); Osmolality,Calculated 284 (275-295); Potassium 3.8 mMol/L (3.4-5.1); Sodium 140 mMol/L (136-145); eGFR > 60 See Note
[2025-01-11 05:25] LABS: Bilirubin,Total 0.4 mg/dL (0.3-1.2); Globulin 2.1 gm/dL (2.3-3.5); Thyroid Stimulating Hormone 3.26 uIU/mL (0.55-4.78); Total Protein 6.2 gm/dL (5.7-8.2)
--- NOTE | 2025-01-11 07:32 | PC.NURSE ---
Patient to er with c/o abd. pain x 4 days, patient admitted to hospital and awaiting room on floor, skin is warm dry and pink, patient received morphine early in the am and states he did have some relief of pain currently 03/02 at this time, patient denies n/v/d, call light within reach, patient has no other needs at this time.
[2025-01-11] MEDS: ACETAMINOPHEN 325 MG TABLET 650 MG PO (07:53)
[2025-01-11] MEDS: PIPER/TAZO INJ 4.5 GM in SODIUM CHLORIDE 0.9% (POP) 100 ML IV ×3 (07:54→23:30)
[2025-01-11] MEDS: PANTOPRAZOLE 40 MG TABLET PO (09:17)
--- NOTE | 2025-01-11 09:57 | PC.NURSE ---
DR. HUITRON NOTIFIED OF PATIENT'S PAIN LEVEL OF 7/10 AFTER PRN MORPHINE, DR. HUITRON STATED THAT HE WOULD PLACE ORDER FOR ADDITIONAL PAIN MEDICATION, AWAITING ORDERS.
[2025-01-11] MEDS: KETOROLAC INJ 30 MG/ML VIAL IVP (10:07)
--- NOTE | 2025-01-11 10:07 | PC.CC ---
Patient is a 64 year-old male who presents to the hospital for abdominal pain. Darleen AMOS made [id number] contact with patient. ASW introduced self, role, and reason for visit. Patient appeared alert and oriented to self, location, and situation. Patient was pleasant and engaged in initial assessment. Patient confirmed information on demographics and reports to living at home with his roommates. Patient reports he does not have a POA/POLS/[facility] Directive but in the event he is unable to make his own medical decisions he appointments his daughter Gay Soriano . At home patient is able to ambulate independently and completes ADLs with assistance from his [facility] provider Danuta Sherwood. He receives 74 hours a month from [facility] but is suppose to receive an increase of hours. Patient does not use any DME at home. Primary care provider is Nancy Hicks and he uses [facility] for prescription medications. Upon discharge the patient plans to return home. security services specialist to follow up with any discharge needs.
--- NOTE | 2025-01-11 11:59 | PC.NURSE ---
DR. MAHMOOD WAS IN TO SPEAK WITH PATIENT AND STATES PATIENT MAY HAVE DIABETIC FULL LIQUID DIET UNABLE TO DUE SURGERY TODAY DUE TO PATIENT TAKING PLAVIX YESTERDAY. DR. ZAPATA NOTIFIED VIA TELEPHONE AND NEW ORDER FOR DIABETIC FULL LIQUID DIET RECEIVED VIA TELEPHONE.
--- NOTE | 2025-01-11 13:36 | PD.RESPRO ---
Documentation for date of: 01/11/25 Subjective Subjective Interval history: 01/11/2025: Overnight admission for 64-year-old male with past medical history of type 2 diabetes, hypertension, COPD not on home oxygen, aortic insufficiency/aneurysm 5 cm along with history of tension pneumothorax secondary to COPD who presented to the ED with abdominal pain and found to have cholelithiasis and cholecystitis. Dr Martinez, general surgery was consulted but due to the patient being on Plavix and last dose being yesterday 01/10, Dr. Martinez recommends that the patient be off Plavix for 7 days. Patient's barrel and receiver aligner, Dr. Elvira Lowe, was contacted regarding this and states that the patient should not be off Plavix as he has significant coronary artery disease with stenosis of the right circumflex artery. As a result, we will not move forward with surgery at this time and instead make sure the patient's pain is well-controlled and recommend that he follows up with his cardiothoracic surgeon Dr. Vasquez in [place] for the aortic root and coronary artery disease management. Exam Vital Signs Temp Pulse Resp BP Pulse Ox O2 Del Method O2 Flow Rate 98.0 F 72 18 122/77 96 Room Air 2 01/11/25 10:56 01/11/25 10:56 01/11/25 10:56 01/11/25 10:56 01/11/25 10:56 01/11/25 10:56 01/10/25 16:00 Narrative Exam Physical Exam: GENERAL: Awake, answering questions appropriately, appears stated age HEENT: NC/AT. Moist mucosa. PERRLA/EOMI. CARDIO: Heart RRR, III/IV holodiastolic flow murmur auscultated at the left sternal border, distant heart sounds, no JVD. PULM: No coughing or visible SOB. Lungs CTA B/L. GI: Abdomen soft, tender to palpation in right upper quadrant, no guarding/rebound tenderness, borborygmi apparent SKIN/MSK/EXT: No wounds/discoloration/rashes/edema/amputations. +Pedal pulses present B/L. NEURO: Oriented x3, no focal neurologic deficits noted,Moves extremities x4. Objective Labs 01/12/25 04:24 01/12/25 04:24 Labs: Laboratory Results - last 24 hr 01/11/25 04:41 WBC 8.2 D RBC 4.74 Hgb 14.2 D Hct 41.1 MCV 87 MCH 30.0 MCHC 34.5 RDW Std Deviation 41.6 Plt Count 233 D Neut % (Auto) 55 Lymph % (Auto) 30 Archer % (Auto) 12 Eos % (Auto) 2 Baso % (Auto) 0 Neut # (Auto) 4.5 Lymph # (Auto) 2.4 Archer # (Auto) 1.0 H Eos # (Auto) 0.2 Baso # (Auto) 0.0 Immature Gran # (Auto) 0.06 H Absolute Nucleated RBC 0.00 Immature Gran % 1 H Nucleated RBC % 0 PT 11.1 INR 1.0 APTT 29.4 Sodium 140 Potassium 3.8 D Chloride 104 Carbon Dioxide 26.9 Anion Gap 9 BUN 21 Creatinine 1.1 Estim Creat Clear Calc 88.2 eGFR > 60 BUN/Creatinine Ratio [address] Glu mg/dL 143 H Hemoglobin A1c 6.6 H Calculated Osmolality 284 Calcium 9.0 Corrected Calcium 9.0 Phosphorus 4.0 Magnesium 2.2 Total Bilirubin 0.4 AST 15 ALT 24 Alkaline Phosphatase 70 Total Protein 6.2 Albumin 4.1 D Globulin 2.1 L Albumin/Globulin Ratio 2.0 TSH 3.26 Quality Measures Quality Measures none Assessment & Plan Assessment Current Active Medications: Generic Name Dose Route Start Last Admin Trade Name Freq PRN Reason Stop Dose Admin Acetaminophen 650 mg 01/11/25 12:08 Acetaminophen 325 Mg Tablet PO 02/09/25 22:58 Q6H PRN Pain 1-3 and/or Fever >100.1 Hydrocodone Bitart/Acetaminophen 1 tab 01/11/25 12:07 Hydrocodone/Apap 10/325 Tab PO 01/16/25 12:06 Q4HR PRN Pain 7-10 Hydrocodone Bitart/Acetaminophen 1 tab 01/11/25 12:09 Hydrocodone/Apap 5/325 Tablet PO 01/16/25 12:08 Q4HR PRN Pain 4-6 Albuterol 2.5 mg 01/10/25 22:57 Albuterol Rt 2.5 Mg/0.5 Ml Nebu INH 02/09/25 22:56 Q2HR PRN SHORTNESS OF BREATH OR WHEEZE Bisacodyl 10 mg 01/10/25 22:59 Bisacodyl 5 Mg Tabec PO 02/09/25 22:58 QDAY PRN CONSTIPATION Protocol Dextrose 25 ml 01/10/25 23:07 Dextrose 50%-Water Inj 50 Ml Syringe IV 02/09/25 23:06 Q15MIN PRN BG 50-70 responsive npo pt Dextrose 50 ml 01/10/25 23:07 Dextrose 50%-Water Inj 50 Ml Syringe IV 02/09/25 23:06 Q15MIN PRN BG <50 OR BG <70 & pt unresponsive Glucagon 1 mg 01/10/25 23:07 Glucagon Inj 1 Mg Vial IM Q15MIN PRN BG <70, and no IV access Piperacillin Sod/Tazobactam 100 mls @ 25 mls/hr 01/11/25 08:00 01/11/25 12:00 Sod 4.5 gm/ Sodium Chloride IV 01/17/25 07:29 Infused Q8HR CASA Infusion Insulin Human Lispro 0 unit 01/11/25 07:30 01/11/25 11:17 Insulin Lispro (Admelog) 1 Unit/0.01 Ml Unit SC 02/10/25 07:29 Not Given AC CASA Protocol Ondansetron HCl 4 mg 01/10/25 22:59 Ondansetron Inj 2 Mg/Ml Inj 2 Ml IV 02/09/25 22:58 Q6H PRN NAUSEA OR VOMITING Protocol Pantoprazole Sodium 40 mg 01/11/25 09:00 01/11/25 09:17 Pantoprazole 40 Mg Tablet PO 02/10/25 08:59 40 mg QDAY CASA Administration Sodium Chloride 3 ml 01/10/25 22:57 Sodium Chloride Rt Isis 0.9% 3 Ml Nebu INH 02/09/25 22:56 PRN PRN SOLN Plan 64-year-old male patient with past medical history of hypertension, diabetes mellitus, COPD, aortic insufficiency, remote history of pneumothorax, presented to the ED due to history of abdominal pain for the past 2 days. Patient said that the pain started in his right upper quadrant and epigastric area awakened him from sleeping. Patient was admitted for acute cholecystitis management. #Acute cholecystitis Patient presenting from home with 3 days of abdominal pain which was exacerbated after he ate a hamburger 2 days ago Patient presented with acute tenderness/pain secondary to acute cholecystitis. Heart rate 99, WBC 13.5, ultrasound showed gallbladder wall thickening and cholelithiasis. MRCP Showed Stone in the gallbladder neck, and was negative for any common bile duct Dilatation. General surgeon Dr. Martinez was consulted by the ED team and recommended to admit the patient. Dr Martinez states that the patient has to be off Plavix for 7 days in order to proceed with cholecystectomy Cardiology recommends against stopping Plavix at this time Plan Continue Zosyn 4.5 mg 4 times daily Started diet, advance as tolerated Multimodal analgesia, stopped morphine As needed Toradol Follow-up outpatient with general surgery for elective cholecystectomy after completing follow-up with CT surgery for severe coronary artery disease and aortic root aneurysm #History of aortic aneurysm #History of moderate to severe aortic valve insufficiency #History of PFO Patient follows Dr. Santiago outpatient who has the patient on aspirin 81 mg and Plavix 75 mg p.o. daily for severe CAD with near fully stenosis of the right circumflex Patient also followed Dr. Bourne (cardiothoracic surgery) who referred the patient to Dr. Vasquez CT surgery from [place] for higher level of care secondary to patient's high risk factors (tension pneumothorax) Abdominal CTA from 08/2022 showed 3 mm pulmonary nodule right lower lobe, Infrarenal abdominal aortic aneurysm, AP dimension 4.1 cm mediolateral dimension 4.0 cm, cephalocaudad dimension 8.60 dimension 3.8 cm on EE which was recently done in September [address] Santiago showed aortic root and ascending aorta is severely dilated. Ascending aorta at 5.0cm. Moderate to severe AI. central AI. Vena contracte width of 0.98 cm. Presence of a small PFO across the atrial septum. EF was 55 to 60%. [address]. Santiago consulted (cardiology), appreciate recommendations Plan: Continue aspirin and Plavix Follow-up with the CT surgeon in [place] and complete cardiac workup and surgery prior to cholecystectomy #Hx of COPD not on home O2 #History of pneumothorax #History of COVID infection Patient apparently has COPD and is on Spiriva and albuterol inhalers at home Patient has multiple infections with COVID which apparently has caused his lung functions to worsen, per patient Patient in 2021 had complication of COPD bullae which developed into tension pneumothorax and he required chest tube placement Plan: Continue Duonebs PRN Q8HRRT Supplemental oxygen #Type 2 diabetes, [id number] A1c of 6.6 Patient is on metformin 500 mg p.o. twice daily and Jardiance 25 mg p.o. daily Plan: Sliding scale insulin #Hypertension Patient has history of hypertension and takes amlodipine 10 mg p.o. daily, lisinopril hydrochlorothiazide 1 tab p.o. daily Plan: Will hold blood pressure medication at this time as the patient is normotensive and resume when appropriate Hospital Management Lines: PIV Diet: Diabetic full liquid, will advance as tolerated Bowel: Senna GI prophylaxis: Not needed DVT prophylaxis: SCD Dispo: Pain management and expecting discharge within the next 24 hours pending cardiology recommendations Code: Full Patient seen and assessed with attending Dr. Potter and senior resident Dr. Rachel Salas, PGY-1 -- ATTESTATION: I saw and examined the patient this morning, and I agree with current management stated by the resident. Will continue to monitor patient during their stay. Disclaimer: Despite multiple revisions, due to the dictation software being used, the document bellow may not be free of grammatical errors including phonetic/typographic errors. However, this does not deter from our commitment to providing health care in the patient's best interest in mind. Dr. Jad Ramos, PGY-3 Attending Provider Attestation/Addendum I, Monie Potter, DO, attest that I was physically present for the june portions of the service and evaluated the patient with the resident and I reviewed and discussed the case with the resident and agree with the resident's findings and plans of care as documented above Patient seen and evaluated this AM. He states that he has had RUQ pain for the past four days, worse in the morning. He denies any fevers or chills associated with the pain. Patient has extensive cardiac hx including severe stenosis of his RCA and aortic root dilatation with aortic insufficiency, as well as thoracic and aortic aneurysm. Patient had seen a cardiothoracic surgeon for aortic root repair, valve replacement and single bypass for RCA. Patient was deemed a high risk candidate due to extensive bullae noted CT. Since he remains on aspirin and plavix, patient is a high risk candidate for undergoing any surgical interventions at this time. Patient is understanding of the risks outweighing the benefits of going to surgery. Will treat with IV abx and pain control. Will restart diet. If patient is able to tolerate oral intake without requiring significant pain medication, patient can be discharged home and to follow up with CT surgery at [place]. If he continues to have uncontrolled pain, patient may need a cholecystostomy tube. Abdomen is soft with tenderness in the right upper and lower quadrants. He denies any nausea or vomting. Patient states he is very hungry.
--- NOTE | 2025-01-11 13:41 | PD.RESCONSUL ---
HPI Data of Consult Patient: new to practice Consult date: 01/11/25 Requesting Physician: Larisa Massey MD Admitting Provider: Larisa Massey MD Attending Provider: Larisa Massey MD Primary Care Provider: BRANDIE Dobbs Consult Narrative History of present illness: Mr. Soriano is a 64-year-old male with past medical history of coronary artery disease, aortic insufficiency hypertension, diabetes mellitus, COPD and remote history of pneumothorax who presented to [facility] emergency department on 01/10/2025 with a chief complaint of abdominal pain. Patient reports that he has nonradiating pain in right upper quadrant and epigastric region since the last 2 days, pain is associated with nausea and anorexia, reports no episodes of emesis. Patient has decreased appetite since the last 2 days, denies any diarrhea or constipation. Patient denies any chest pain, shortness of breath, orthopnea, bilateral lower extremity edema, PND and headache. Patient is followed by Dr. Jeyson Santiago, patient has dilated ascending aorta, moderate to severe central AI with vena contracte and a width of 0.98 cm long PFO. Patient had a nuclear stress test done in October 2024 with outpatient cardiology was found to have no evidence of stress-induced ischemia. Patient had a cardiac cath in November 2024 showed 90% severe stenosis of RCA, aortic root dilatation moderate to severe AI, patient was sent next day to [place] for cardiothoracic evaluation for aortic root repair, valve replacement and single bypass for RCA. CT scan done in [place] showed patient has extensive bullous disease, has substernal bullae hence high risk procedure as sternotomy could not be performed. Patient was further transferred to [facility] for further intervention as patient is high risk surgery. Patient is still following up with [facility]. ED course: Sepsis alert with heart rate of 99, blood pressure of 135/99, there was no fever saturating 95% on room air. WBC was found to be 13.5, hemoglobin 17.7, his CMP was within normal limits, T. bili and AST and ALT follow-up within normal limits, alk phos normal. On imaging ultrasound showed Cholelithiasis, abnormal thickening of the gallbladder wall, consider HIDA scan or MRCP follow-up as clinically warranted. Cirrhosis versus primary hepatocellular disease. cc:: cc: Larisa Massey MD Review of Systems Review of Systems Narrative Review of Systems: ROS: -CONSTITUTIONAL: Denies weight loss, fever and chills. -HEENT: Denies changes in vision and hearing. -RESPIRATORY: Denies SOB and cough. -CV: Denies palpitations and Chest Pain. -GI: Positive abdominal pain, denies nausea, vomiting,constipation and diarrhea. -: Denies dysuria and urinary frequency. -MSK: Denies myalgia and joint pain. -SKIN: Denies rash and pruritus. -NEUROLOGICAL: Denies headache and syncope. -PSYCHIATRIC: Denies recent changes in mood. Denies anxiety and depression. Past Medical History Past Medical History Comments PMH COMMENT: PMH: As above PSX: Facial reconstruction, cataract surgery, chest tube insertion for pneumothorax Social hx: Alcohol: Denied Tobacco: History of 40 years smoking 2 to 3 packs/day Illicit drugs: Current marijuana user, remote history of meth abuse Allergies: Codeine Exam Vital Signs Temp Pulse Resp BP Pulse Ox O2 Del Method O2 Flow Rate 98.0 F 72 18 122/77 96 Room Air 2 01/11/25 10:56 01/11/25 10:56 01/11/25 10:56 01/11/25 10:56 01/11/25 10:56 01/11/25 10:56 01/10/25 16:00 Narrative Exam Physical Exam: GENERAL: Awake, answering questions appropriately, appears stated age HEENT: NC/AT. Moist mucosa. PERRLA/EOMI. CARDIO: Heart RRR, + diastolic murmur auscultated at the left sternal border, distant heart sounds, no JVD. PULM: No coughing or visible SOB. Lungs CTA B/L. GI: Abdomen soft, tender to palpation in right upper quadrant, no guarding/rebound tenderness, borborygmi apparent SKIN/MSK/EXT: No wounds/discoloration/rashes/edema/amputations. +Pedal pulses present B/L. NEURO: Oriented x3, no focal neurologic deficits noted,Moves extremities x4. Results Labs 01/11/25 04:41 01/11/25 04:41 Labs: Short CBC 01/11/25 Range/Units 04:41 WBC 8.2 D (3.8-10.6) Thou/mm3 Hgb 14.2 D (13.5-16.0) g/dL Hct 41.1 (41.0-53.0) % Plt Count 233 D (140-440) Thou/mm3 BMP 01/11/25 04:41 Sodium 140 Potassium 3.8 D Chloride 104 Carbon Dioxide 26.9 BUN 21 Creatinine 1.1 Glucose 139 H Calcium 9.0 Liver Function 01/11/25 Range/Units 04:41 Total Bilirubin 0.4 (0.3-1.2) mg/dL AST 15 (0-34) U/L ALT 24 (10-49) U/L Alkaline Phosphatase 70 (46-116) U/L Albumin 4.1 D (3.4-4.8) gm/dL Quality Measures Quality Measures none Medications Home Medications and Allergies Home Medications ?Medication ?Instructions ?Recorded ?Confirmed ?Type amlodipine 10 mg tablet 10 mg PO QDAY 10/10/24 01/11/25 History aspirin 81 mg capsule 81 mg PO QDAY 10/10/24 01/11/25 History Held on 01/11/25. Instructions: Doctor's Order fluticasone furoate 200 1 inh inhalation QDAY 10/10/24 01/11/25 History mcg-vilanterol 25 mcg/dose inhalation powder lisinopril 20 1 tab PO QDAY 10/10/24 01/11/25 History mg-hydrochlorothiazide 12.5 mg tablet metformin 500 mg tablet,extended 500 mg PO BID 10/10/24 01/11/25 History release 24 hr albuterol sulfate 90 mcg/actuation 1 puff inhalation Q1H PRN 11/29/24 01/11/25 History aerosol inhaler shortness of breath or wheezing empagliflozin 25 mg tablet 25 mg PO QDAY 11/29/24 01/11/25 History (Jardiance) aspirin 81 mg tablet,delayed 81 mg PO QDAY 01/09/25 01/11/25 History release clopidogrel 75 mg tablet (Plavix) 75 mg PO QDAY 01/09/25 01/11/25 History Held on 01/11/25. Instructions: Doctor's Order Allergies Allergy/AdvReac Type Severity Reaction Status Date / Time codeine Allergy Intermediate Hives Verified 01/10/25 11:15 Bee Stings Allergy Intermediate Rash Uncoded 01/10/25 11:15 Visit Medications Acetaminophen (Acetaminophen 325 Mg Tablet) 650 mg PO Q6H PRN PRN Reason: Pain 1-3 and/or Fever >100.1 Stop: 02/09/25 22:58 Hydrocodone Bitart/Acetaminophen (Hydrocodone/Apap 10/325 Tab) 1 tab PO Q4HR PRN PRN Reason: Pain 7-10 Stop: 01/16/25 12:06 Hydrocodone Bitart/Acetaminophen (Hydrocodone/Apap 5/325 Tablet) 1 tab PO Q4HR PRN PRN Reason: Pain 4-6 Stop: 01/16/25 12:08 Albuterol (Albuterol Rt 2.5 Mg/0.5 Ml Nebu) 2.5 mg INH Q2HR PRN PRN Reason: SHORTNESS OF BREATH OR WHEEZE Stop: 02/09/25 22:56 Bisacodyl (Bisacodyl 5 Mg Tabec) 10 mg PO QDAY PRN; Protocol PRN Reason: CONSTIPATION Stop: 02/09/25 22:58 Dextrose (Dextrose 50%-Water Inj 50 Ml Syringe) 25 ml IV Q15MIN PRN PRN Reason: BG 50-70 responsive npo pt Stop: 02/09/25 23:06 Dextrose (Dextrose 50%-Water Inj 50 Ml Syringe) 50 ml IV Q15MIN PRN PRN Reason: BG <50 OR BG <70 & pt unresponsive Stop: 02/09/25 23:06 Glucagon (Glucagon Inj 1 Mg Vial) 1 mg IM Q15MIN PRN PRN Reason: BG <70, and no IV access Piperacillin Sod/Tazobactam (Sod 4.5 gm/ Sodium Chloride) 100 mls @ 25 mls/hr IV Q8HR CASA Stop: 01/17/25 07:29 Last Infusion: 01/11/25 12:00 Dose: Infused Insulin Human Lispro (Insulin Lispro (Admelog) 1 Unit/0.01 Ml Unit) 0 unit SC AC [facility]; Protocol Stop: 02/10/25 07:29 Last Admin: 01/11/25 11:17 Dose: Not Given Ondansetron HCl (Ondansetron Inj 2 Mg/Ml Inj 2 Ml) 4 mg IV Q6H PRN; Protocol PRN Reason: NAUSEA OR VOMITING Stop: 02/09/25 22:58 Pantoprazole Sodium (Pantoprazole 40 Mg Tablet) 40 mg PO QDAY CASA Stop: 02/10/25 08:59 Last Admin: 01/11/25 09:17 Dose: 40 mg Sodium Chloride (Sodium Chloride Rt Isis 0.9% 3 Ml Nebu) 3 ml INH PRN PRN PRN Reason: SOLN Stop: 02/09/25 22:56 Discontinued Medications Acetaminophen (Acetaminophen 325 Mg Tablet) 650 mg PO Q6H PRN PRN Reason: Fever >101.5 Stop: 02/09/25 22:58 Last Admin: 01/11/25 07:53 Dose: 650 mg Acetaminophen (Acetaminophen 325 Mg Tablet) 650 mg PO Q6H PRN PRN Reason: PAIN SCALE 1-3 (mild Stop: 02/09/25 22:58 Sodium Chloride (Ns) 1,000 mls @ 999 mls/hr IV .Q1H1M ONE Stop: 01/10/25 12:44 Last Infusion: 01/10/25 15:13 Dose: Infused Sodium Chloride (Ns) 1,000 mls @ 999 mls/hr IV .Q1H1M ONE Stop: 01/10/25 15:51 Last Infusion: 01/10/25 16:02 Dose: Infused Piperacillin Sod/Tazobactam (Sod 3.375 gm/ Sodium Chloride) 50 mls @ 100 mls/hr IV X1 ONE Stop: 01/10/25 22:59 Last Infusion: 01/11/25 00:29 Dose: Infused Sodium Chloride (Ns) 1,000 mls @ 75 mls/hr IV .[id number] [facility] Stop: 01/11/25 07:59 Last Infusion: 01/11/25 13:31 Dose: Infused Piperacillin Sod/Tazobactam (Sod 4.5 gm/ Sodium Chloride) 100 mls @ 25 mls/hr IV Q8HR [facility] Stop: 01/17/25 07:29 Ketorolac Tromethamine (Ketorolac Inj 30 Mg/Ml Vial) 15 mg IVP X1 ONE Stop: 01/10/25 11:45 Last Admin: 01/10/25 15:01 Dose: 15 mg Ketorolac Tromethamine (Ketorolac Inj 30 Mg/Ml Vial) 15 mg IVP X1 ONE Stop: 01/10/25 21:16 Last Admin: 01/10/25 21:26 Dose: 15 mg Ketorolac Tromethamine (Ketorolac Inj 30 Mg/Ml Vial) 30 mg IVP X1 ONE Stop: 01/11/25 10:00 Last Admin: 01/11/25 10:07 Dose: 30 mg Morphine Sulfate (Morphine Sulf Inj 10 Mg/Ml Vial) 8 mg IVP X1 ONE Stop: 01/10/25 11:45 Last Admin: 01/10/25 14:54 Dose: Not Given Morphine Sulfate (Morphine Sulf Inj 10 Mg/Ml Vial) 4 mg IVP X1 ONE Stop: 01/10/25 14:51 Last Admin: 01/10/25 14:59 Dose: 4 mg Morphine Sulfate (Morphine Sulf Inj 10 Mg/Ml Vial) 6 mg IVP X1 ONE Stop: 01/10/25 21:16 Last Admin: 01/10/25 21:28 Dose: 6 mg Morphine Sulfate (Morphine Sulf Inj 10 Mg/Ml Vial) 4 mg IVP Q4H PRN PRN Reason: PAIN SCALE 5-10(Mod-Sev Stop: 01/16/25 04:53 Morphine Sulfate (Morphine Sulf Inj 10 Mg/Ml Vial) 2 mg IVP Q4H PRN PRN Reason: PAIN SCALE 5-10(Mod-Sev Stop: 01/16/25 04:53 Last Admin: 01/11/25 09:18 Dose: 2 mg Assessment & Plan Plan Assessment and Plan: Summary: Mr. Soriano is a 64-year-old male with past medical history of coronary artery disease, aortic insufficiency, hypertension, diabetes mellitus, COPD and remote history of pneumothorax who presented to [facility] emergency department on 01/10/2025 with a chief complaint of abdominal pain. Patient admitted for further workup for acute cholecystitis. #Severe coronary artery disease #Dilated ascending aorta #Moderate to severe central aortic insufficiency #PFO #Abdominal Aortic Aneurysm Patient is followed up by in-house cardiology outpatient, patient has dilation of ascending aorta, moderate to severe central AI with a vena contract and width of 0.98 cm long small PFO. Patient also followed Dr. Loredo (cardiothoracic surgery) who referred the patient to Dr. Vasquez CT surgery from [facility] for higher level of care secondary to patient's high risk factors due to underlying COPD and patient is a high risk for pnemothorax. Chest/abdomen/pelvis CTA December 2024 shows Heavy calcification left anterior descending coronary artery and COPD with severe bullous disease left apex MAIKEL 10/10/2024: The aortic root and ascending aorta is severely dilated. Ascending aorta at 5.0cm. Moderate to severe AI. central AI. Vena contracte width of 0.98 cm. An intravenous agitated saline injection indicated a small PFO across the atrial septum release by agitation saline injection. No evidence of LA/RAYSHAWN thrombus Normal LV size and function. Estimated EF 55-60% Normal RV size and function. Mild, TR, MR. Trace PI. Aorta US 09/24/2024: Aneurysmal dilatation abdominal aorta length of the abdominal aortic aneurysm 8.1 cm Patient is followed by Dr. Jeyson Santiago, patient has dilated ascending aorta, moderate to severe central AI with vena contracte and a width of 0.98 cm long PFO. Patient had a nuclear stress test done in October 2024 with outpatient cardiology was found to have no evidence of stress-induced ischemia. Patient had a cardiac cath in November 2024 showed 90% severe stenosis of RCA, aortic root dilatation moderate to severe AI, patient was sent next day to [place] for cardiothoracic evaluation for aortic root repair, valve replacement and single bypass for RCA. CT scan done in [place] showed patient has extensive bullous disease, has substernal bullae hence high risk procedure as sternotomy could not be performed. Patient was further transferred to [facility] for further intervention as patient is high risk surgery. Patient is still following up with [facility]. Hence patient was placed on optimal medical therapy and patient was started on aspirin 81 mg and Plavix 75 mg p.o. daily for severe CAD with 90% stenosis of the right coronary artery. Plan: Continue aspirin and Plavix Follow-up with the CT surgery Patient is a high risk for surgery due to underlying CAD Only recommending medical management for cholecystitis #Hypertension Patient has history of hypertension and takes amlodipine 10 mg p.o. daily, lisinopril hydrochlorothiazide 1 tab p.o. daily Plan: Will hold blood pressure medication at this time as the patient is normotensive and resume when appropriate #Cholelithiasis Patient presenting from home with 3 days of abdominal pain which was exacerbated after he ate a hamburger 2 days ago Patient presented with acute tenderness/pain secondary to acute cholecystitis. Heart rate 99, WBC 13.5, ultrasound showed gallbladder wall thickening and cholelithiasis. MRCP Showed Stone in the gallbladder neck, and was negative for any common bile duct Dilatation. General surgeon Dr. Martinez was consulted by the ED team and recommended to admit the patient. Dr Martinez states that the patient has to be off Plavix for 7 days in order to proceed with cholecystectomy Cardiology recommends against stopping Plavix at this time Management per primary team #COPD #Pneumothorax, by history Patient apparently has COPD and is on Spiriva and albuterol inhalers at home Patient has multiple infections with COVID which apparently has caused his lung functions to worsen, per patient Patient in 2021 had complication of COPD bullae which developed into tension pneumothorax and he required chest tube placement Management per primary team #Type 2 diabetes, [id number] A1c of 6.6 Patient is on metformin 500 mg p.o. twice daily and Jardiance 25 mg p.o. daily Management per primary team Thank you for the consult and allowing to participate in the care of the patient. Cardiology will continue to follow. Case discussed with Attending Dr. Santiago. Sydney Canales PGY1 Disclaimer: This note was dictated by speech recognition. Minor errors in overhead irrigator may be present due to voice recognition software.
--- NOTE | 2025-01-11 14:07 | PC.NURSE ---
ASSUMED CARE AT THIS TIME, THIS RN SAW MD WALKING OUT OF ROOM. PER PT MD TOLD HIM SURGERY IS OFF THE TABLE AT THIS TIME UNTIL HE GETS HIS HEART SURGERY, BUT WILL CONTINUE TO GET IV ABX AND FIGURE OUT PAIN CONTROL
--- NOTE | 2025-01-11 15:16 | PD.SURCONS ---
HPI Consult details Consult date: 01/11/25 Reason for consultation narrative: Abdominal pain History of present illness: 64-year-old male with history of diabetes, hypertension, coronary artery disease on Plavix, severe aortic insufficiency presented to the emergency department with worsening abdominal pain. His pain started 3 days ago in the upper abdomen radiating to his right upper quadrant and his back. He has had nausea and vomiting, but denies fever, chills, jaundice, discoloration of urine or stool. A CTA ruled out pulmonary embolism. MRCP and abdominal ultrasound revealed gallstones without evidence of cholecystitis. Review of Systems Constitutional Constitutional: Denies chills and Denies fever(s) Cardiovascular Cardiovascular: Denies chest pain Respiratory Respiratory: Denies cough Gastrointestinal Gastrointestinal: Reports abdominal pain, Reports nausea and Reports vomiting Hematologic/Lymphatic Hematologic/Lymphatic: Denies easy bleeding and Reports easy bruising Past Medical History Surgical History OTHER SURGICAL HX: Reconstructive facial surgery, cataract extraction Social History SMOKING STATUS: Former smoker SUBSTANCE USE: marijuana ALCOHOL: Former Meds Home Medications and Allergies Home Medications ?Medication ?Instructions ?Recorded ?Confirmed ?Type amlodipine 10 mg tablet 10 mg PO QDAY 10/10/24 01/11/25 History aspirin 81 mg capsule 81 mg PO QDAY 10/10/24 01/11/25 History Held on 01/11/25. Instructions: Doctor's Order fluticasone furoate 200 1 inh inhalation QDAY 10/10/24 01/11/25 History mcg-vilanterol 25 mcg/dose inhalation powder lisinopril 20 1 tab PO QDAY 10/10/24 01/11/25 History mg-hydrochlorothiazide 12.5 mg tablet metformin 500 mg tablet,extended 500 mg PO BID 10/10/24 01/11/25 History release 24 hr albuterol sulfate 90 mcg/actuation 1 puff inhalation Q1H PRN 11/29/24 01/11/25 History aerosol inhaler shortness of breath or wheezing empagliflozin 25 mg tablet 25 mg PO QDAY 11/29/24 01/11/25 History (Jardiance) aspirin 81 mg tablet,delayed 81 mg PO QDAY 01/09/25 01/11/25 History release clopidogrel 75 mg tablet (Plavix) 75 mg PO QDAY 01/09/25 01/11/25 History Allergies Allergy/AdvReac Type Severity Reaction Status Date / Time codeine Allergy Intermediate Hives Verified 01/10/25 11:15 Bee Stings Allergy Intermediate Rash Uncoded 01/10/25 11:15 Exam Vital Signs Temp Pulse Resp BP Pulse Ox O2 Del Method O2 Flow Rate 97.8 F 72 18 139/72 H 97 Room Air 2 01/11/25 14:00 01/11/25 14:00 01/11/25 14:00 01/11/25 14:00 01/11/25 14:00 01/11/25 14:00 01/10/25 16:00 Constitutional Constitutional: no acute distress Routine HEENT Exam Eye: Present PERRL (Anicteric sclera) Routine Abdominal Exam Abdominal: Present soft, normoactive bowel sounds and tenderness (Right upper quadrant tenderness to deep palpation with guarding, positive Rodriguez sign); Absent distended Results Results: Laboratory Laboratory results: results reviewed Results: Imaging Imaging narrative: Abdominal ultrasound, MRCP images reviewed, radiologist interpretation noted Assessment & Plan Additional Assessment Additional comments: Patient most likely has symptomatic cholelithiasis, his WBC and liver enzymes are normal today Plan Given patient's history he is at high risk for surgical intervention. He can be treated with antibiotics and low-fat diet. If continues to have symptoms, he may undergo percutaneous cholecystostomy tube for symptomatic relief. Otherwise he will have to be off Plavix for 1 week prior to definitive cholecystectomy.
--- NOTE | 2025-01-11 18:25 | PC.NURSE ---
PATIENT ARRIVED TO ROOM 263 FROM ER. PATIENT IS AWAKE, ALERT, AND ORIENTED. TELE MONITOR APPLIED, VITALS SIGNS CHECKED. ROOM ORIENTATION PROVIDED. PATIENT C/O PAIN TO RIGHT UPPER ABDOMEN 6/10. CALL LIGHT WITHIN REACH, CONTINUE TO MONITOR AND CONTINUE WITH PAIN MANAGEMENT ORDERED.
[2025-01-11] MEDS: HYDROcodone/APAP 5/325 TABLET 1 TAB PO (18:41)
[2025-01-11] MEDS: HYDROcodone/APAP 10/325 TAB PO (23:38)
[2025-01-12] VITALS: BP 113/61; PULSE 63; PULSE 68; RESP 13; TEMP 36.7; O2SAT 95
[2025-01-12 03:58] VITALS: PULSE 69; RESP 13; RESP 14; RESP 93; O2SAT 93
[2025-01-12 04:00] VITALS: BP 143/69; PULSE 60; PULSE 65; RESP 16; TEMP 36.3; O2SAT 96
[2025-01-12] MEDS: HYDROcodone/APAP 10/325 TAB PO (05:22)
[2025-01-12] MEDS: PIPER/TAZO INJ 4.5 GM in SODIUM CHLORIDE 0.9% (POP) 100 ML IV (05:23)
[2025-01-12 05:53] LABS: Basophils % (Auto) 1 % (0-2.5); Eosinophils # (Auto) 0.3 Thou/mm3 (0.0-0.5); Eosinophils % (Auto) 4 % (0-10); Hematocrit 40.2 % (41.0-53.0); Hemoglobin 14.2 g/dL (13.5-16.0); Immature Granulocytes % (Auto) 1 % (0-0); Immature Granulocytes Auto 0.05 Thou/mm3 (0.00-0.00); Lymphocytes # (Auto) 2.5 Thou/mm3 (1.0-4.8); Lymphocytes % (Auto) 34 % (10-50); Mean Corpuscular HGB Conc 35.3 g/dl (31.0-37.0); Mean Corpuscular Hemoglobin 30.4 pg (25.0-35.0); Mean Corpuscular Volume 86 fL (80-100); Monocytes # (Auto) 0.6 Thou/mm3 (0.0-0.8); Monocytes % (Auto) 9 % (0-12); Neutrophils # (Auto) 3.8 Thou/mm3 (1.8-7.7); Neutrophils % (Auto) 52 % (37-80); Nucleated Red Blood Cell % 0 /100 WBC (0); Platelet Count 292 Thou/mm3 (140-440); RDW Standard Deviation 41.2 fL (35.1-43.9); Red Blood Count 4.67 Miln/mm3 (4.50-5.90); White Blood Count 7.3 Thou/mm3 (3.8-10.6)
[2025-01-12 06:00] VITALS: BMI 34.2
[2025-01-12 06:16] LABS: Alanine Aminotransferase 19 U/L (10-49); Albumin, Serum 4.2 gm/dL (3.4-4.8); Alkaline Phosphatase 69 U/L (46-116); Anion Gap 7 (7-16); Aspartate Amino Transferase 18 U/L (0-34); BUN/Creatinine Ratio 18 Ratio (12-20); Bilirubin,Total 0.5 mg/dL (0.3-1.2); Blood Urea Nitrogen 18 mg/dL (9-23); Calcium 8.9 mg/dL (8.3-10.6); Calcium (Corrected) 8.9 mg/dL (8.5-10.1); Carbon Dioxide 27.3 mMol/L (20.0-31.0); Chloride 107 mMol/L (98-107); Globulin 2.1 gm/dL (2.3-3.5); Glucose 119 mg/dL (74-106); Magnesium 2.2 mg/dL (1.6-2.6); Osmolality,Calculated 284 (275-295); Phosphorous 3.6 mg/dL (2.4-5.1); Potassium 4.3 mMol/L (3.4-5.1); Sodium 141 mMol/L (136-145); Total Protein 6.3 gm/dL (5.7-8.2); eGFR > 60 See Note
[2025-01-12] MEDS: HYDROmorphone INJ 2 MG/ML VIAL 0.25 MG IVP (06:21)
[2025-01-12 08:00] VITALS: BP 137/90; PULSE 67; PULSE 95; RESP 19; TEMP 36.1; O2SAT 95
[2025-01-12] MEDS: SENNA TABLET 1 TAB PO (08:20)
[2025-01-12 10:15] VITALS: PULSE 52; RESP 16; RESP 96; O2SAT 96
[2025-01-12 12:00] VITALS: BP 140/65; PULSE 65; PULSE 71; RESP 19; TEMP 36.3; O2SAT 97
--- NOTE | 2025-01-12 12:38 | PD.SURPROG ---
Documentation for date of: 01/12/25 Subjective Subjective Narrative: Patient is seen and examined. He is resting comfortably. He is tolerating a low-fat diet without nausea or vomiting, however he still has some right upper quadrant pain Exam Vital Signs Temp Pulse Resp BP Pulse Ox O2 Del Method O2 Flow Rate 97.3 F 52 L 16 143/69 H 96 Room Air 2 01/12/25 04:00 01/12/25 10:15 01/12/25 10:15 01/12/25 04:00 01/12/25 10:15 01/12/25 04:00 01/12/25 00:00 Constitutional Constitutional: no acute distress Routine Abdominal Exam Comments: Abdomen is soft and nondistended. He has tenderness to deep palpation over right upper quadrant, no rebound tenderness or peritonitis Assessment & Plan Assessment Additional comments: Symptomatic cholelithiasis. Patient does not have any fever and his WBC and liver enzymes are normal Plan Patient is deemed high risk for surgical intervention. Continue conservative management, once symptoms improved patient can be discharged
--- NOTE | 2025-01-12 14:46 | ESDS_ITS ---
<Statement entered by Monie Potter DO - 01/14/25 08:34> I, Monie Potter DO, attest that I was physically present for the june portions of the service and evaluated the patient with the resident and I reviewed and discussed the case with the resident and agree with the resident's findings and plans of care as documented above Planned Discharge Date 01/12/25 DS: Providers Provider Date of admission: 01/10/25 22:57 Primary care physician: BRANDIE Dobbs Admitting Provider: Larisa Massey MD Attending Provider on Admission: Larisa Massey MD Consults: 01/10/25 22:15 Consult to General Surgery Stat Comment: Cholecystitis Consulting Provider: Mannie Martinez 01/11/25 12:05 Consult to Cardiology Routine Comment: Hx of aortic insuff/dilatation, RCX stenosis Consulting Provider: Jeyson Santiago Attending Provider on DC: Monie Somers DO Discharging Provider: Keke Mendoza MD DS: Diagnosis Problem List Completed Was Problem List Reviewed/Reconciled?: Yes Hospital Course Hospital Course Hospital course: Reason for hospitalization: Cholelithiasis and biliary colic without cholecystitis Mr. Soriano is a 64-year-old male with past medical history of coronary artery disease, aortic insufficiency, hypertension, diabetes mellitus, COPD and remote history of pneumothorax who presented to [facility] emergency department on 01/10/2025 with 2 days of nonradiating right upper quadrant and epigastric abdominal pain, associated with nausea and anorexia. US showed gallbladder wall thickening and cholelithiasis. MRCP showed stone in the gallbladder neck, but was negative for any common bile duct dilatation. General surgeon Dr. Martinez was consulted by the ED team and recommended to admit the patient for further management. Patient was started on IV Zosyn and was evaluated by Cardiology. Patient follows with Dr. Santiago. Patient had a cardiac cath in November 2024 which showed 90% severe stenosis of RCA, aortic root dilatation with moderate to severe aortic insufficiency, and patient was sent the next day to [place] for cardiothoracic evaluation for aortic root repair, valve replacement, and single bypass for RCA. CT scan done in [place] showed patient has extensive bullous disease, has substernal bullae hence high risk procedure as sternotomy could not be performed. Patient was further transferred to [place] for further intervention as patient is high risk surgery, however has not been set up for surgery yet. Patient is still following up with [place]. Due to patient's co-morbidities it was decided to manage the episode the patient's cholelithiasis and biliary colic attack conservatively with antibiotics and pain management. There was no evidence of acute cholecystitis at this time. Per Dr. Martinez patient also cannot undergo surgery without being off of Plavix for 1 week, which was not advised by Cardiology at this time. Patient was determined stable for discharge with pain medication to be used in cases of severe pain and recommended to pursue a low-fat diet. He was encouraged to follow up with his Cardiothoracic specialist in [place] as soon as possible for the planned aortic root repair. Patient may then schedule elective cholecystectomy afterwards. Patient acknowledged and understood all instructions and he was discharged home. Discharge Recommendations: -Follow up with PCP within 1 week of discharge -Follow up with cardiothoracic surgery in [place] as scheduled for aortic root repair, valve replacement, and single bypass for right coronary artery -Continue antibiotics with amoxicillin-clavulanate 875-125 mg for 6 more days -Take [place] as needed up to 2 times daily for severe pain -Please adhere to a low fat diet to prevent episodes of gallbladder attacks -Continue rest of medications as previously prescribed -Return to the ED or call EMS if symptoms return and/or worsen. Hospital Diagnoses: #Cholelithiasis without cholecystitis #Intractable pain secondary to biliary colic #History of aortic aneurysm #History of moderate to severe aortic valve insufficiency #History of PFO #History of COPD not on home O2 #History of pneumothorax #History of COVID infection #Type 2 diabetes, [id number] #Hypertension Patient plan of care was discussed with the attending physician, Dr. Potter. Keke Mendoza, PGY-2 Time Spent with Patient Time attestation: Total time spent providing and/or coordinating discharge services: Time spent: Greater than 30 minutes Exam Vital Signs Temp Pulse Resp BP Pulse Ox O2 Del Method O2 Flow Rate 97.4 F 65 19 140/65 H 97 Room Air 2 01/12/25 12:00 01/12/25 12:01/12/25 12:01/12/25 12:01/12/25 12:00 01/12/25 12:00 01/12/25 00:00 Narrative Exam Physical Exam: GENERAL: Awake, answering questions appropriately, appears stated age HEENT: NC/AT. Moist mucosa. PERRLA/EOMI. CARDIO: Heart RRR, III/IV holodiastolic flow murmur auscultated at the left sternal border, distant heart sounds, no JVD. PULM: No coughing or visible SOB. Lungs CTA B/L. GI: Abdomen soft, tender to palpation in right upper quadrant, no guarding/rebound tenderness, borborygmi apparent SKIN/MSK/EXT: No wounds/discoloration/rashes/edema/amputations. +Pedal pulses present B/L. NEURO: Oriented x3, no focal neurologic deficits noted,Moves extremities x4. Discharge Plan Plan Patient Disposition: HOME (Self Care) Patient condition on transfer: Stable Care Plan Goals: Discharge Recommendations: -Follow up with PCP within 1 week of discharge -Follow up with cardiothoracic surgery in [place] as scheduled for aortic root repair, valve replacement, and single bypass for right coronary artery -Continue antibiotics with amoxicillin-clavulanate 875-125 mg for 6 more days -Take [place] as needed up to 2 times daily for severe pain -Please adhere to a low fat diet to prevent episodes of gallbladder attacks -Continue rest of medications as previously prescribed -Return to the ED or call EMS if symptoms return and/or worsen. Prescriptions/Referrals Prescriptions/Med Rec: New hydrocodone-acetaminophen 5-325 mg tablet 1 tab PO BID MDD 10-650 PRN (Reason: pain (scale score 7-10)) Qty: 10 0RF amoxicillin-pot clavulanate 875-125 mg tablet 1 tab PO BID 6 Days Qty: 12 0RF Continued lisinopril-hydrochlorothiazide 20-12.5 mg Tablet 1 tab PO QDAY amlodipine 10 mg Tablet 10 mg PO QDAY metformin 500 mg Tablet Extended Release 24 Hr 500 mg PO BID fluticasone furoate-vilanterol 200-25 mcg/dose Blister With Device 1 inh INHALATION QDAY aspirin 81 mg tablet,delayed release (DR/EC) 81 mg PO QDAY clopidogrel [Plavix] 75 mg tablet 75 mg PO QDAY famotidine [Pepcid] 20 mg tablet 20 mg PO BID 5 Days Qty: 10 0RF pantoprazole 40 mg tablet,delayed release (DR/EC) 40 mg PO QDAY Qty: 7 0RF sucralfate 1 gram tablet 1 g PO TID 7 Days Qty: 21 0RF alum-mag hydroxide-simeth [Maalox Advanced] 200-200-20 mg/5 mL suspension 15 ml PO QID PRN (Reason: dyspepsia) Qty: 3000 0RF Rx Instructions: administer between meals and at bedtime albuterol sulfate 90 mcg/actuation HFA aerosol inhaler 1 puff INHALATION Q1H PRN (Reason: shortness of breath or wheezing) Jardiance 25 mg tablet 25 mg PO QDAY No Action aspirin 81 mg Capsule 81 mg PO QDAY Referrals: Nancy Hicks FNP [Primary Care Provider] - Patient/Caregiver Discharge Instructions Discharge Activity: activity as tolerated Other Discharge Diet Instructions: Low fat diet Education Materials: Low-Fat Cooking Tips, What Are Gallstones, Treating G allstones, ED Diet, Low Fat, ED Gallstones with Biliary Colic Print Language: Bhutanese Stand Alone Forms: Jie Award Info., Patient Portal Info Letter Discharge Order Discharge Orders: Discharge (Routine); Ordered 01/12/25 Ordered By: Keke Mendoza Quality Discharge Quality Measures VTE prophylaxis
== END 2025-01-12 15:20 | disposition home or self-care (01) | DRG 446 ==
LOC: SERX 22:14 → SERHOLD 23:13 → S2NX 01-11 18:23
PROVIDERS: Emergency Medicine; Student in an Organized Health Care Education/Training Program; Admitting Provider Internal Medicine; Emergency Provider Emergency Medicine; PCP Nurse Practitioner; Visit Provider Internal Medicine
DX: K80.70 Calculus of gallbladder and bile duct without cholecystitis without obstruction (principal); E78.5 Hyperlipidemia, unspecified; J44.9 Chronic obstructive pulmonary disease, unspecified; I10 Essential (primary) hypertension; E11.9 Type 2 diabetes mellitus without complications; F12.90 Cannabis use, unspecified, uncomplicated; F15.10 Other stimulant abuse, uncomplicated; I71.43 Infrarenal abdominal aortic aneurysm, without rupture; I35.1 Nonrheumatic aortic (valve) insufficiency; I25.10 Atherosclerotic heart disease of native coronary artery without angina pectoris; Z95.2 Presence of prosthetic heart valve; Z87.891 Personal history of nicotine dependence; Z86.16 Personal history of COVID-19; Z86.79 Personal history of other diseases of the circulatory system; Z79.84 Long term (current) use of oral hypoglycemic drugs; Z79.82 Long term (current) use of aspirin; Z79.02 Long term (current) use of antithrombotics/antiplatelets; Z79.899 Other long term (current) drug therapy
CPT/HCPCS: 36415; 76705; 80053; 83036; 83605; 83690; 83735; 84100; 84145; 84443; 84484; 85025; 85610; 85730; 96361; 96365; 96366; 96367; 96375; 96376; 99285; J1885; J2270; J2543; J3490; J7030; J7050; S8037; 74181; A9270

== ENCOUNTER → 2025-05-06 | Outpatient (CLI) | payer MEDICARE, MEDICAID, SELFPAY ==
--- NOTE | 2025-05-06 09:56 | XR_ITS ---
Examination: PA lateral chest 2 views TECHNIQUE: Upright PA lateral chest 2 views Date and time: May 06, 2025 1004 hours Comparison January 09, 2025 INDICATIONS: Long-term Covid evaluation, history pneumothorax IMPRESSION: Stable parenchymal scarring at the lung bases and left apex Normal heart size No interval pneumonia or pulmonary edema Moderate hyperexpansion IMPRESSION: COPD Stable parenchymal scarring compared with January 09, 2025
[2025-05-06 11:20] LABS: Glucose Estimated Average 126 mg/dL (80-131); Hemoglobin A1C 6.0 % Hgb (4.8-6.0)
[2025-05-06 11:30] LABS: Alanine Aminotransferase 29 U/L (10-49); Albumin, Serum 5.0 gm/dL (3.4-4.8); Albumin/Globulin Ratio 1.9 (1.2-2.2); Alkaline Phosphatase 87 U/L (46-116); Anion Gap 13 (7-16); Aspartate Amino Transferase 23 U/L (0-34); BUN/Creatinine Ratio 21 Ratio (12-20); Bilirubin,Total 0.6 mg/dL (0.3-1.2); Blood Urea Nitrogen 23 mg/dL (9-23); Calcium 10.0 mg/dL (8.3-10.6); Calcium (Corrected) 10.0 mg/dL (8.5-10.1); Carbon Dioxide 24.0 mMol/L (20.0-31.0); Cardiac Risk Estimate 5.8 RATIO (4.0-6.7); Chloride 104 mMol/L (98-107); Cholesterol 203 mg/dL (132-200); Creatinine (Component) 1.1 mg/dL (0.6-1.3); Globulin 2.7 gm/dL (2.3-3.5); Glucose 119 mg/dL (74-106); HDL Cholesterol 35 mg/dL (40-60); LDL Cholesterol,Calculated 105 mg/dL (0-130); Osmolality,Calculated 285 (275-295); Potassium 4.7 mMol/L (3.4-5.1); Sodium 141 mMol/L (136-145); Total Protein 7.7 gm/dL (5.7-8.2); Triglycerides 313 mg/dL (30-150); eGFR > 60 See Note
[2025-05-06 11:32] LABS: Creatinine MALB Rnd Ur 120 mg/dL (30-125); Microalbumin Creat Ratio 4 mg/gCrea (<30); Microalbumin, Random Urine 5 mg/L (0-300)
[2025-05-06 11:35] LABS: Basophils # (Auto) 0.1 Thou/mm3 (0.0-0.2); Basophils % (Auto) 1 % (0-2.5); Eosinophils # (Auto) 0.3 Thou/mm3 (0.0-0.5); Eosinophils % (Auto) 2 % (0-10); Hematocrit 52.9 % (41.0-53.0); Hemoglobin 17.9 g/dL (13.5-16.0); Immature Granulocytes Auto 0.07 Thou/mm3 (0.00-0.00); Lymphocytes # (Auto) 3.5 Thou/mm3 (1.0-4.8); Lymphocytes % (Auto) 31 % (10-50); Mean Corpuscular HGB Conc 33.8 g/dl (31.0-37.0); Mean Corpuscular Hemoglobin 28.5 pg (25.0-35.0); Mean Corpuscular Volume 84 fL (80-100); Monocytes # (Auto) 1.0 Thou/mm3 (0.0-0.8); Monocytes % (Auto) 8 % (0-12); Neutrophils # (Auto) 6.6 Thou/mm3 (1.8-7.7); Neutrophils % (Auto) 58 % (37-80); Nucleated Red Blood Cell # 0.00 Thou/mm3 (0.00-0.00); Nucleated Red Blood Cell % 0 /100 WBC (0); Platelet Count 274 Thou/mm3 (140-440); RDW Standard Deviation 41.9 fL (35.1-43.9); Red Blood Count 6.28 Miln/mm3 (4.50-5.90); White Blood Count 11.4 Thou/mm3 (3.8-10.6)
[2025-05-06 12:05] LABS: Hepatitis C Antibody Non Reactive (Non React)
[2025-05-09 19:49] LABS: PSA, Free 0.32 ng/mL; PSA, Total 2.7 ng/mL (< OR = 4.0)
[2025-05-13 08:12] LABS: PSA, % Free 12 % (calc) (>25)
== END | disposition home or self-care (01) ==
LOC: CDIM 09:50 → COPL 10:12
PROVIDERS: PCP Nurse Practitioner; Referring Provider Nurse Practitioner; Visit Provider Radiology Diagnostic Radiology
DX: J44.9 Chronic obstructive pulmonary disease, unspecified (principal); J98.4 Other disorders of lung; E11.65 Type 2 diabetes mellitus with hyperglycemia; E78.5 Hyperlipidemia, unspecified; N40.0 Benign prostatic hyperplasia without lower urinary tract symptoms; Z11.59 Encounter for screening for other viral diseases
CPT/HCPCS: 36415; 71046; 80053; 80061; 82043; 82570; 83036; 84153; 84154; 85025; 86803